=== PATIENT | male | born 1950 | race Caucasian/White ===

== ENCOUNTER 2020-08-02 13:04 | Outpatient (REF) | payer MEDICARE, MEDICAID, OTHER, SELFPAY ==
--- NOTE | ~2020-08-02 | CT_ITS ---
EXAMINATION: CT CHEST WITHOUT CONTRAST CLINICAL INFORMATION: Follow up pulmonary nodules. COMPARISON: Previous chest CT scan June 2019 and chest x-ray August 2019. TECHNIQUE: Multidetector volumetric CT imaging of the chest was done. Axial MIP volume rendering provided. Sagittal and coronal reformatted images were obtained. This CT examination was performed using dose optimization techniques as appropriate, variously including the following: *Automated exposure control *Adjustment of mA and/or kV according to patient size (this includes techniques or standardized protocols for targeted exams where dose is matched to indication/reason for exam; i.e. extremities or head) *Use of iterative reconstruction technique DLP: 105 mGy-cm FINDINGS: LUNGS: There is evidence of mild paraseptal emphysema. There are clustered peribronchial nodules and increased attenuation seen in the medial apical segment of the right upper lobe axial image 113 series 7 that is unchanged. This probably represents airways disease. There is a 2 mm peripheral or subpleural left upper lobe nodule axial image 121 series 7 that is stable. There are several areas of small clustered peribronchial nodules, for example in the anterior segment of the right upper lobe largest measuring 2 mm axial 335 series 7, lateral right lower lobe for example axial image 424 series 7 also likely related to airways disease that are new. There are scattered areas of bronchial wall thickening and soft tissues opacification, for example in the right lower lobe axial image 437 series 7, left upper lobe axial image 224 series 7 and left lower lower lobe axial image 408 series 7. There is a new 4 mm peripheral or subpleural lingular nodule axial image 481 series 7. MEDIASTINUM: There is evidence of atherosclerotic disease. There is severe coronary artery calcification. The heart does not appear enlarged. The thoracic aorta is normal in caliber. There is no pericardial effusion. There is shotty mediastinal lymphadenopathy that is stable. PLEURA: There is no pleural effusion. No pleural mass or thickening. AXILLA: There is bilateral gynecomastia that is stable. No enlarged axillary lymph nodes are seen. UPPER ABDOMEN: There are gallstones in the gallbladder. The spleen is not completely imaged but appears enlarged. There is a radiopaque density adjacent to the greater curvature of the stomach and splenic hilum questionable for postsurgical change or possible embolization material that is stable. OSSEOUS STRUCTURES: There are multiple old left-sided rib fractures. There is scoliosis and degenerative change of the spine. CT/CT chest wo con IMPRESSION: Mild emphysema. Several new clustered peribronchial nodules or tree-in-bud appearance and areas of bronchial wall thickening and bronchial soft tissue opacification suggestive of airways disease. There is a new 4 mm peripheral or subpleural lingular nodule. Chest CT follow-up recommended. Severe coronary artery calcification. Old trauma to the left chest wall. Gallstones. Probable splenomegaly.
== END 2020-08-02 13:05 | disposition home or self-care (01) ==
LOC: HO.CT 13:04
PROVIDERS: Visit Provider Internal Medicine Pulmonary Disease
DX: R91.8 Other nonspecific abnormal finding of lung field (principal)
CPT/HCPCS: 71250

== ENCOUNTER 2020-08-14 11:26 | Emergency (ER) | payer OTHER, MEDICARE, SELFPAY ==
--- NOTE | ~2020-08-14 | XR_ITS ---
EXAMINATION: XR ELBOW, RIGHT CLINICAL INFORMATION: Fall and swelling. COMPARISON: None TECHNIQUE: Four views of the right elbow. FINDINGS: No acute fracture, subluxation or elbow joint effusion. Bones have normal alignment. The elbow is flexed on all views. The elbow joint spaces are maintained. Small, 0.3 cm ossific body projects anterior to the intact radial neck. Also, there is a well-corticated 1.3 cm ossific body of the anterolateral elbow. Soft tissues are swollen posterior to the ulna and olecranon, particularly in the area of the olecranon bursa. This could represent posttraumatic olecranon bursitis. Small foci of calcification are present in the distal triceps tendon near its olecranon insertion. XR/XR elbow RT 2V IMPRESSION: * No acute fracture or malalignment at the right elbow. * Soft tissues are swollen posterior to the ulna and olecranon. There is likely olecranon bursitis. No olecranon fracture.
[2020-08-14 11:45] VITALS: BP 148/77; PULSE 89; RESP 18; TEMP 37.4; O2SAT 94; BMI 18.8
--- NOTE | 2020-08-14 11:57 | ED_ITS ---
HPI - Extremity Problem General Chief complaint: Extremity Injury, Upper Stated complaint: LEG INJ Time Seen by Provider: 08/14/20 11:45 Source: patient Mode of arrival: ambulatory Limitations: no limitations History of Present Illness HPI Narrative: 69 yo male with past medical history of anemia, COPD, HTN, liver disease, bursitis here right elbow pain. Patient tells me he had a slip and fall yesterday landing on his right elbow. Denies hitting head or LOC. This occurred yesterday. Has chronic swelling to elbow d/t bursitis however thiis morning increasing pain, swelling and erythema radiating down the arm. No fevers, chills. MD Complaint: extremity pain and extremity swelling Related Data Home Medications Medication Instructions Recorded Confirmed No Known Home Meds 08/14/20 08/14/20 Previous Rx's Medication Instructions Recorded cefdinir 300 mg PO BID #14 cap 08/14/20 doxycycline monohydrate 100 mg PO BID #14 cap 08/14/20 Allergies Allergy/AdvReac Type Severity Reaction Status Date / Time morphine [MORPHINE] Allergy Intermediate RASH Verified 08/14/20 12:23 Penicillins [PCN] Allergy Intermediate HIVES Verified 08/14/20 12:23 penicillin V Allergy Unknown rash Verified 08/14/20 12:23 Review of Systems Review of Systems: Yes all other systems are reviewed and are negative Constitutional: Constitutional: Reports no additional constitutional complain ts, Denies body ache(s), Denies chills, Denies fever(s), Denies headache(s) and Denies weakness Eyes: Eyes: Reports no additional eye complaints and Denies change in vision ENT: Reports system reviewed and no additional complaints, except as documented, Denies dizziness, Denies headache(s), Denies nasal congestion, Denies nasal discharge and Denies neck pain Cardiovascular: Cardiovascular: Reports no additional cardiovascular complaints, Denies chest pain, Denies leg edema and Denies dyspnea Respiratory: Respiratory: Reports no additional respiratory complaints, Denies cough and Denies dyspnea Gastrointestinal: Gastrointestinal: Reports no additional gastrointestinal complaints, Denies abdominal pain, Denies diarrhea, Denies nausea and Denies v omiting Genitourinary: Genitourinary: Denies urinary incontinence Musculoskeletal: Musculoskeletal: Reports no additional musculoskeletal compla ints, Denies back pain, Reports arthralgias, Reports joint swelling, Reports limited range of motion, Denies neck pain, Denies numbness and Denies tingling Integumentary/Breasts: Skin/Breast: Reports system reviewed and no additional complaints, except as docu and Denies rash Neurologic: Reports system reviewed and no additional complaints, except as documented, Denies Abnormal speech present, Denies dizziness, Denies headache(s), Denies numbness, Denies tingling and Denies weakness PMFSH Past Medical History Attestation statement: The following information was validated with the patient. Source: old records reviewed and nursing notes reviewed Medical History Anemia COPD (chronic obstructive pulmonary disease) Hypertension Liver disease No known health problems Social History Social History Advance Directives: No Advance Directives Information Provided: Yes Physical Exam Vital Signs: Vital Signs: Last Vital Signs Temp 99.3 F 08/14/20 11:45 Pulse 89 08/14/20 11:45 Resp 18 08/14/20 11:45 BP 148/77 H 08/14/20 11:45 Pulse Ox 94 08/14/20 11:45 Body Mass Index 18.8 Const: General: cooperative, healthy appearing, comfortable and no acute distress Orientation/consciousness: patient oriented x3 Limitations: no limitations HENMT: Head: Yes normal to inspection Ears: hearing grossly normal bilaterally General nose exam: Normal external nose present Face and sinus: Yes normal facial exam Mouth: Normal oral and palatal mucosa present Throat: Yes posterior oropharynx normal Eyes: General: appearance normal, both eyes and all related structures Pupils: Equal, round and reactive pupils present Neck: Neck: Yes normal visual inspection Chest: Chest palpation & inspection: normal inspection of the chest Resp: Effort & Inspection: normal respiratory effort Auscultation: clear to auscultation bilaterally Cardio: Rate: regular rate Rhythm: regular rhythm Peripheral pulses: Peripheral pulses 2+ throughout GI: Inspection: Yes normal to inspection Palpation (GI): Soft to palpation and nontender Auscultation: normal bowel sounds Back/Spine/Pelvis: Thoracic/Lumbar Spine: thoracic and lumbar spine normal to inspection Skin: General skin exam: no rashes or lesions noted Neuro: General: patient oriented x3, no focal motor deficits and normal sensation to monofilament Cranial nerves: Yes Equal, round and reactive pupils present Cognition (Neuro): normal cognition Speech: No Abnormal speech present Gait exam (Neuro): Normal gait present Motor exam (neuro): 5/5 motor strength present throughout Extrem: Other: Patient has swelling and tenderness to the lateral aspect of the elbow and has limited extension of the arm d/t pain. Arm held at 90 degrees and able to extend additional 20-30 degrees with significant pain. Palpable distal pulses. No pain over shoulder or wrist. Erythema is NOT circumferential General: Yes normal to inspection Course Course Course Narrative: 69 yo male here with RUE swelling, erythema and limited ROM s/p fall yesterday. On exam patient has erythema and swelling over the olecreanon process with erythema extending over the lateral aspect to the wrist. Significant tenderness and limited ROM d/t pain. Will need imaging, labs including blood cultures/lactic acid. 1350-patient had a CBC which shows no leukocytosis or shift. He has no fever. He does have some thrombocytopenia which appears chronic likely secondary to alcohol use. Patient refused additional labs. I would spoke to Dr. Minaya and reviewed the case. He recommended supportive care, antibiotics PO if concern for cellulitis, and f/u with PCP. Less likely septic joint as patient has some ROM. Spoke to the Dorothy. The patient is up wandering, requiring redirection, refusing care. She tells me this is his normal behavior. All instructions given to her verbally over the phone. She came to pick the patient up. Reviewed worrisome signs and symptoms and when to return to the emergency department. Comfortable discharge home. MDM - Extremity (Nontraumatic) Lab Data Result diagrams: 08/14/20 12:15 08/14/20 12:16 Labs: Lab Results 08/14/20 08/14/20 08/14/20 Range/Units 12:15 12:16 12:16 WBC 10.6 (4.8-10.8) X10*3/uL RBC 4.26 L (4.60-5.80) X10*6/uL Hgb 13.6 L (14.0-18.0) g/dl Hct 42.0 (42-52) % MCV 98.6 H (80-98) fL MCH 31.9 (27.0-33.0) pg MCHC 32.4 (31.0-36.0) g/dl RDW 13.2 (11.0-16.0) % Plt Count 80 L (160-400) X10*3/uL MPV 11.2 (9.4-12.4) fL Immature Gran % (Auto) 0.3 (0.0-0.4) % Neut % (Auto) 76.5 H (45-73) % Lymph % (Auto) 11.1 L (20-40) % [place] % (Auto) 11.5 H (2-11) % Eos % (Auto) 0.4 (0-4) % Baso % (Auto) 0.2 (0-2) % Lymph # (Auto) 1.2 (1.2-4.9) X10*3/uL [place] # (Auto) 1.2 (0.1-1.2) X10*3/uL Eos # (Auto) 0.0 (0.0-0.4) X10*3/uL Baso # (Auto) 0.0 (0.0-0.2) X10*3/uL Abs Immat Gran (auto) 0.03 (0.00-0.03) X10*3/uL Absolute Neuts (auto) 8.1 (2.0-8.3) X10*3/uL Absolute Nucleated RBC 0.000 (0.0-0.012) X10*3/uL Nucleated RBC % (auto) 0.0 (0.0-0.2) /100WBC Smear Tech's Comments VERIFIED Sodium Cancelled Potassium Cancelled Chloride Cancelled Carbon Dioxide Cancelled Anion Gap Cancelled BUN Cancelled Creatinine Cancelled Estim Creat Clear Calc Cancelled Estimated GFR Cancelled Random Glucose Cancelled Lactic Acid 1.4 (0.5-2.0) mmol/L Calcium Cancelled Total Bilirubin Cancelled Direct Bilirubin Cancelled AST Cancelled ALT Cancelled Alkaline Phosphatase Cancelled Total Protein Cancelled Albumin Cancelled Imaging Data elbow x-ray: Attestation: I personally reviewed and interpreted this imaging study as follows: Radiologist's impression: [address] [id number] ReportSigned Patient: Carlos Coto WMR#: [id number]: [id number]:[id number]/Sex: 69 / MADM Date: 08/14/20Loc: HO.EDAttending Dr: Ordering Physician: SARAH CARLISLE NP Date of Service: 08/14/20 Procedure(s): XR elbow RT 2V Accession Number(s): [id number] cc: SARAH CARLISLE NP~ EXAMINATION: XR ELBOW, RIGHT CLINICAL INFORMATION: Fall and swelling. COMPARISON: None TECHNIQUE: Four views of the right elbow. FINDINGS: No acute fracture, subluxation or elbow joint effusion. Bones have normal alignment. The elbow is flexed on all views. The elbow joint spaces are maintained. Small, 0.3 cm ossific body projects anterior to the intact radial neck. Also, there is a well-corticated 1.3 cm ossific body of the anterolateral elbow. Soft tissues are swollen posterior to the ulna and olecranon, particularly in the area of the olecranon bursa. This could represent posttraumatic olecranon bursitis. Small foci of calcification are present in the distal triceps tendon near its olecranon insertion. XR/XR elbow RT 2V IMPRESSION: * No acute fracture or malalignment at the right elbow. * Soft tissues are swollen posterior to the ulna and olecranon. There is likely olecranon bursitis. No olecranon fracture. Discharge Plan Discharge Clinical Impression: Cellulitis Bursitis Qualifiers: Bursitis location: elbow Elbow bursitis location: olecranon bursitis Laterality: right Qualified Code(s): M70.21 - Olecranon bursitis, right elbow Patient Disposition: Home, Self-Care Instructions: Cellulitis (ED), Elbow Bursitis (ED) Additional Instructions: Apply an Yovany wrapped to the elbow to help with the swelling Return for increasing redness, swelling or fever greater than 100.4 He needs to see his doctor by Sunday or Sunday for re-evaluation Prescriptions: New doxycycline monohydrate 100 mg capsule 100 mg PO BID Qty: 14 RF: 0 cefdinir 300 mg capsule 300 mg PO BID Qty: 14 RF: 0 No Action No Known Home Meds RF: 0 Referrals: Willard Carmona MD [Primary Care Provider] - 2 days Interventions: ED Discharge Assessment Last Done: 08/14/20 13:43 Discharge Date/Time: 08/14/20 13:44
[2020-08-14 12:33] LABS: Eosinophils Percent Auto 0.4 % (0-4); MANUAL DIFF FLAG SCAN; Mean Corpuscular Volume 98.6 fL (80-98); Mean Platelet Volume 11.2 fL (9.4-12.4); Monocytes Percent Auto 11.5 % (2-11); PLT CLUMP 1; SCAN SMEAR FLAG 1
[2020-08-14 12:35] LABS: Basophils Percent Auto 0.2 % (0-2); Hemoglobin 13.6 g/dl (14.0-18.0); Imm Gran Abs Auto 0.03 X10*3/uL (0.00-0.03); Imm Gran Pct Auto 0.3 % (0.0-0.4); Lymphocytes Absolute Auto 1.2 X10*3/uL (1.2-4.9); Lymphocytes Percent Auto 11.1 % (20-40); Mean Corpuscular HGB Conc 32.4 g/dl (31.0-36.0); Mean Corpuscular Hemoglobin 31.9 pg (27.0-33.0); Monocytes Absolute Auto 1.2 X10*3/uL (0.1-1.2); Neutrophils Absolute Auto 8.1 X10*3/uL (2.0-8.3); Neutrophils Percent Auto 76.5 % (45-73); Red Blood Count 4.26 X10*6/uL (4.60-5.80); Red Cell Distribution Width 13.2 % (11.0-16.0); White Blood Count 10.6 X10*3/uL (4.8-10.8)
[2020-08-14 12:48] LABS: Lactic Acid 1.4 mmol/L (0.5-2.0)
[2020-08-14 12:50] LABS: Platelet Count 80 X10*3/uL (160-400)
--- NOTE | 2020-08-14 12:55 | PC.NURSE ---
PT REFUSING IV. PT ALSO REFUSING SECOND BLOOD CULTURE DRAW. PT SAYING THATS ALL YOU DO HERE IS STICK PEOPLE AND STEAL THEIR BLOOD.
[2020-08-14 13:17] LABS: SLIDE REVIEW VERIFIED
--- NOTE | 2020-08-14 13:19 | PC.NURSE ---
Addendum entered by Nichol Smith RN 08/14/20 13:21: HALEY WRAP APPLIED TO RIGHT ELBOW/FOREARM. Original Note: HALEY WRAP APPLIED TO LEFT ELBOW/FOREARM. PT AMBULATING AROUND ED, FREQUENTLY BEING REDIRECTED BACK TO [facility]. [facility]EN ON THE WAY TO PICK PATIENT UP.
== END 2020-08-14 13:44 | disposition home or self-care (01) ==
PROVIDERS: Nurse Practitioner Family; Emergency Provider Emergency Medicine; PCP Family Medicine
DX: L03.113 Cellulitis of right upper limb (principal); M70.21 Olecranon bursitis, right elbow; I10 Essential (primary) hypertension
CPT/HCPCS: 36415; 73070; 83605; 85025; 87040; 99283

== ENCOUNTER 2020-08-16 10:21 | Outpatient (REF) | payer OTHER, SELFPAY ==
[2020-08-16 13:48] LABS: MANUAL DIFF FLAG NO
[2020-08-16 13:58] LABS: Basophils Percent Auto 0.2 % (0-2); Eosinophils Absolute Auto 0.1 X10*3/uL (0.0-0.4); Hematocrit 40.1 % (42-52); Hemoglobin 12.9 g/dl (14.0-18.0); Imm Gran Abs Auto 0.03 X10*3/uL (0.00-0.03); Imm Gran Pct Auto 0.3 % (0.0-0.4); Lymphocytes Absolute Auto 0.9 X10*3/uL (1.2-4.9); Lymphocytes Percent Auto 9.3 % (20-40); Mean Corpuscular HGB Conc 32.2 g/dl (31.0-36.0); Mean Corpuscular Hemoglobin 31.4 pg (27.0-33.0); Mean Corpuscular Volume 97.6 fL (80-98); Monocytes Absolute Auto 1.3 X10*3/uL (0.1-1.2); Monocytes Percent Auto 12.9 % (2-11); Neutrophils Absolute Auto 7.5 X10*3/uL (2.0-8.3); Neutrophils Percent Auto 76.3 % (45-73); Platelet Count 100 X10*3/uL (160-400); Red Blood Count 4.11 X10*6/uL (4.60-5.80); White Blood Count 9.9 X10*3/uL (4.8-10.8)
[2020-08-16 14:54] LABS: Alanine Aminotransferase 49 U/L (0-40); Albumin Level 3.4 g/dL (3.5-5.0); Alkaline Phosphatase 82 U/L (39-117); Anion Gap 10 (12-20); Aspartate Amino Transferase 96 U/L (5-37); Bilirubin Total 2.2 mg/dL (0.0-1.0); Blood Urea Nitrogen 13 mg/dL (9-16); Calcium 8.4 mg/dL (8.4-10.2); Carbon Dioxide 28 mmol/L (22-29); Chloride 104 mmol/L (96-108); Estimated Glomerular Filt Rate > 60; Glucose Random 77 mg/dL (60-115); Potassium 3.8 mmol/L (3.3-5.1); Sodium 138 mmol/L (135-145); Total Protein 6.3 g/dL (6.5-8.0)
== END 2020-08-16 10:22 | disposition home or self-care (01) ==
LOC: HO.WFDLDS 10:21
PROVIDERS: Visit Provider Family Medicine
DX: L03.113 Cellulitis of right upper limb (principal)
CPT/HCPCS: 36415; 80053; 85025

== ENCOUNTER 2020-08-16 11:30 | Outpatient (REF) | payer MEDICARE, MEDICAID, OTHER, SELFPAY ==
--- NOTE | ~2020-08-16 | XR_ITS ---
EXAMINATION: RIGHT ELBOW FOREARM AND WRIST X-RAYS CLINICAL INFORMATION: Pain COMPARISON: Previous right elbow x-ray 08/14/2020 TECHNIQUE: 3 views of the right elbow, 2 views of the right forearm and 3 views of the right wrist FINDINGS: Right elbow: Bone alignment is normal. No fracture or dislocation is seen. There are small soft tissue ossifications seen adjacent to the lateral humeral epicondyle and radial head and neck. There are degenerative changes at the radiocapitellar joint. There may be a small elbow joint effusion. There is a soft tissue swelling over the olecranon. There are soft tissue calcifications or ossifications over the olecranon that are stable, some of which may represent calcifications in the triceps tendon. Right forearm: Bone alignment is normal. No fracture or dislocation is seen. Soft tissues are unremarkable. Right wrist: Bone alignment is normal. No fracture or dislocation is seen. There are degenerative changes at the first MCP joint and first JAIL joints with joint space narrowing and osteophyte formation. Joint spaces are otherwise normal. There is a faint soft tissue arterial calcification. XR/XR forearm RT 2V IMPRESSION: Right elbow: No acute fracture or dislocation. Degenerative changes at the radiocapitellar joint, periarticular soft tissue ossifications and small joint effusion. Marked soft tissue swelling over the olecranon similar to previous exam again questionable for olecranon bursitis and question small calcifications or ossifications in the triceps tendon insertion. Right elbow: Unremarkable exam. Right wrist: Degenerative changes at the first MCP and JAIL joints.
--- NOTE | ~2020-08-16 | XR_ITS ---
EXAMINATION: RIGHT ELBOW FOREARM AND WRIST X-RAYS CLINICAL INFORMATION: Pain COMPARISON: Previous right elbow x-ray 08/14/2020 TECHNIQUE: 3 views of the right elbow, 2 views of the right forearm and 3 views of the right wrist FINDINGS: Right elbow: Bone alignment is normal. No fracture or dislocation is seen. There are small soft tissue ossifications seen adjacent to the lateral humeral epicondyle and radial head and neck. There are degenerative changes at the radiocapitellar joint. There may be a small elbow joint effusion. There is a soft tissue swelling over the olecranon. There are soft tissue calcifications or ossifications over the olecranon that are stable, some of which may represent calcifications in the triceps tendon. Right forearm: Bone alignment is normal. No fracture or dislocation is seen. Soft tissues are unremarkable. Right wrist: Bone alignment is normal. No fracture or dislocation is seen. There are degenerative changes at the first MCP joint and first SHELTER joints with joint space narrowing and osteophyte formation. Joint spaces are otherwise normal. There is a faint soft tissue arterial calcification. XR/XR elbow RT min 3V IMPRESSION: Right elbow: No acute fracture or dislocation. Degenerative changes at the radiocapitellar joint, periarticular soft tissue ossifications and small joint effusion. Marked soft tissue swelling over the olecranon similar to previous exam again questionable for olecranon bursitis and question small calcifications or ossifications in the triceps tendon insertion. Right elbow: Unremarkable exam. Right wrist: Degenerative changes at the first MCP and SHELTER joints.
--- NOTE | ~2020-08-16 | XR_ITS ---
EXAMINATION: RIGHT ELBOW FOREARM AND WRIST X-RAYS CLINICAL INFORMATION: Pain COMPARISON: Previous right elbow x-ray 08/14/2020 TECHNIQUE: 3 views of the right elbow, 2 views of the right forearm and 3 views of the right wrist FINDINGS: Right elbow: Bone alignment is normal. No fracture or dislocation is seen. There are small soft tissue ossifications seen adjacent to the lateral humeral epicondyle and radial head and neck. There are degenerative changes at the radiocapitellar joint. There may be a small elbow joint effusion. There is a soft tissue swelling over the olecranon. There are soft tissue calcifications or ossifications over the olecranon that are stable, some of which may represent calcifications in the triceps tendon. Right forearm: Bone alignment is normal. No fracture or dislocation is seen. Soft tissues are unremarkable. Right wrist: Bone alignment is normal. No fracture or dislocation is seen. There are degenerative changes at the first MCP joint and first HALFWAY joints with joint space narrowing and osteophyte formation. Joint spaces are otherwise normal. There is a faint soft tissue arterial calcification. XR/XR wrist RT min 3V IMPRESSION: Right elbow: No acute fracture or dislocation. Degenerative changes at the radiocapitellar joint, periarticular soft tissue ossifications and small joint effusion. Marked soft tissue swelling over the olecranon similar to previous exam again questionable for olecranon bursitis and question small calcifications or ossifications in the triceps tendon insertion. Right elbow: Unremarkable exam. Right wrist: Degenerative changes at the first MCP and HALFWAY joints.
== END 2020-08-16 11:31 | disposition home or self-care (01) ==
LOC: HO.HMGCX 11:30
PROVIDERS: PCP Family Medicine; Visit Provider Family Medicine
DX: M25.531 Pain in right wrist (principal); M25.521 Pain in right elbow
CPT/HCPCS: 73080; 73090; 73110

== ENCOUNTER 2020-08-19 11:20 | Outpatient (REF) | payer MEDICARE, OTHER, SELFPAY | END 2020-08-19 11:21 | disposition home or self-care (01) | LOC: HO.LAB 11:20 | PROVIDERS: Visit Provider Family Medicine | DX: L02.413 Cutaneous abscess of right upper limb (principal) | CPT/HCPCS: 87071; 87205 ==

== ENCOUNTER 2020-08-30 13:30 | Outpatient (RCR) | payer MEDICARE, MEDICAID, SELFPAY | END 2020-12-31 09:56 | disposition home or self-care (01) | LOC: HO.WCC 13:30 | PROVIDERS: Visit Provider Physician Assistant | DX: L98.492 Non-pressure chronic ulcer of skin of other sites with fat layer exposed (principal); M70.21 Olecranon bursitis, right elbow; L08.89 Other specified local infections of the skin and subcutaneous tissue; F17.200 Nicotine dependence, unspecified, uncomplicated; K74.60 Unspecified cirrhosis of liver | CPT/HCPCS: 11042; 17250; 87071; 87077; 87186; 87205; 97605; 99213; 99214; 99215 ==

== ENCOUNTER 2021-03-15 10:02 | Inpatient (IN) | payer MEDICARE, MEDICAID, SELFPAY ==
[2021-03-15] VITALS (8 sets, daily range): BP systolic 118–143; BP diastolic 57–91; PULSE 57–78; RESP 16–18; TEMP 36.3–36.8; O2SAT 92–99; BMI 19.0
--- NOTE | ~2021-03-15 | XR_ITS ---
EXAMINATION: XR CHEST CLINICAL INFORMATION: Shortness of breath COMPARISON: Previous chest x-ray August [address] July 2020 TECHNIQUE: Frontal view of the chest was obtained. FINDINGS: The cardiac and mediastinal contours are stable. The lungs are well inflated. The lungs are clear. There is no pleural effusion or pneumothorax. There are multiple old rib fractures, left greater than right. There are mild degenerative changes of the spine. XR/XR chest 1V IMPRESSION: Well-inflated lungs. No evidence for acute disease in the chest.
--- NOTE | 2021-03-15 10:47 | ECG_ITS ---
Test Reason : DYSPNEA Blood Pressure : / mmHG Vent. 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
--- NOTE | 2021-03-15 10:49 | ED_ITS ---
HPI - SOB/Dyspnea General Chief Complaint: Dyspnea Stated Complaint: SOB Time Seen by Provider: 03/15/21 10:46 Source: patient Mode of arrival: ambulatory Limitations: no limitations History of Present Illness HPI Narrative: 70-year-old male with long history of smoking presented for evaluation of shortness of breath. Found to have 85% O2 sat on room air at triage and patient placed on 3 L of oxygen while ED evaluation. Symptoms started about week ago, feeling something stuck in his mid chest, symptoms are constant since week ago, associated with coughing with yellow sputum, no fever, no chills, no sick contact, absence of flu-like symptoms. Known to have COPD. No recent travel, no lower extremity swelling or tenderness. No chest pain. Patient has been losing weight because loss of appetite not eating well and if he try to eat he vomit due to coughing mixed with phlegm. Related Data Previous Rx's Medication Instructions Recorded albuterol sulfate 90 mcg/actuation 1 inh INHALATION QID PRN 30 Days 11/08/20 aerosol inhaler (ProAir HFA) #8.5 g fluticasone 250 mcg-salmeterol 50 1 inh INHALATION Q12H 30 Days #60 11/08/20 mcg/dose blistr powdr for ea inhalation (Wixela Inhub) Allergies Allergy/AdvReac Type Severity Reaction Status Date / Time morphine [MORPHINE] Allergy Intermediate RASH Verified 01/03/21 10:09 Penicillins [PCN] Allergy Intermediate HIVES Verified 01/03/21 10:09 penicillin V Allergy Unknown rash Verified 01/03/21 10:09 Review of Systems Review of Systems: All other systems are reviewed and are negative Constitutional: Reports as per HPI and Reports no additional constitutional complaints Eyes: Reports as per HPI and Reports no additional eye complaints Reports system reviewed and no additional complaints, except as documented Cardiovascular: Reports as per HPI and Reports no additional cardiovascular complaints Respiratory: Reports as per HPI and Reports no additional respiratory complaints Gastrointestinal: Reports as per HPI and Reports no additional gastrointestinal complaints Genitourinary: Reports no additional female genitourinary complaints Musculoskeletal: Reports no additional musculoskeletal complaints Skin/Breast: Reports system reviewed and no additional complaints, except as docu Psychiatric: Reports no additional psychiatric complaints Endocrine: Reports no additional endocrine complaints Hematologic/Lymphatic: Reports no additional hematologic/lymphatic complaints Allergic/Immunologic: Reports no additional allergic/immunologic complaints Reports system reviewed and no additional complaints, except as documented and Reports Abnormal speech present COUNT INCLUDES THE [facility] Past Medical History Medical History Anemia COPD (chronic obstructive pulmonary disease) Hypertension Liver disease No known health problems Surgical History History of arthroscopic knee surgery History of liver biopsy Family History Family History Father Unknown family medical history Mother Breast cancer Brother No problems noted. Brother No problems noted. Brother No problems noted. Sister No problems noted. Sister No problems noted. Sister No problems noted. Sister Cancer Son No problems noted. Son No problems noted. Son No problems noted. Daughter No problems noted. Social History Social History Housing: House Alcohol intake: never Patient Tobacco Use Status: Current everyday Tobacco user Cigarettes Per Day: 8 Advance Directives: No service: Yes Current occupational status: retired Physical Exam Vital Signs: Vital Signs: Last Vital Signs Temp 98.2 F 03/15/21 15:51 Pulse 68 03/15/21 15:51 Resp 18 03/15/21 15:51 BP 133/58 L 03/15/21 15:51 Pulse Ox 95 03/15/21 15:51 Oxygen Flow Rate 3 03/15/21 10:09 Body Mass Index 19.0 Vital signs have been reviewed as appeared to be correct. Blood pressure normal. Heart rate normal. Respiration rate normal. Temperature normal. Oxygen saturation normal. Appearance: Alert. Oriented X3. No acute distress. Head: Normal external exam. Normocephalic. Atraumatic. No [place] signs noted. No raccoon eyes noted Eyes: PERRLA. EOMI. Conjunctiva and sclera normal. Eyelids normal. ENT: TM's Normal. Pharynx normal. Uvula midline. Moist mucous membranes. No trismus noted. No drooling noted. No muffled voice noted. Neck: Normal inspection. Neck supple. FROM. No adenopathy. Thyroid Normal. No meningeal signs. No neck mass noted. CVS: Normal heart rate and rhythm. Heart sound normal. No murmurs noted. Pulses normal throughout. Respiratory: No respiratory distress. Painless inspiration. Breath sounds normal. Diffuse expiratory wheezing, prolonged expiration. nontender. No accessory muscle usage noted or decreased air movement noted. Abdomen: Soft and nontender. Bowel sounds normal in all 4 quadrants. No d istention noted. No organomegaly noted. No visible injury noted. Back: No CVA tenderness. Full range of motion noted. Skin: Skin warm and dry. Normal skin color. Normal skin turgor. No rashes/l esions/lacerations noted. Extremities: No lower extremity edema. Extremities exhibit normal range of motion. Extremities nontender. Neuro: Oriented X 3. Cranial nerve exam: II-XII are grossly intact No motor deficit. No sensory deficit. Reflexes normal. Course Course Course Narrative: Assessment and plan. 70-year-old male history of COPD, long history of smoking presented with shortness of breath and increased wheezing for the past week. Patient initially satting 85% on room air, patient was placed on 3 L of supplemental oxygen which improved his oxygenation, patient also received bron chodilator/magnesium/Solu-Medrol patient's symptoms have improved. Patient also looking cachectic with a complaint of losing weight, patient had a history of food is stuck in his esophagus (was managed by GI at [facility]), discussed with the hospitalist and get inpatient GI consult. I discussed the case with Dr. Price from GI who will assess the patient MDM - SOB/Dyspnea Lab Data Attestation: I reviewed the patient's lab results. Result diagrams: 03/15/21 13:23 03/15/21 11:54 Labs: Lab Results 03/15/21 03/15/21 03/15/21 Range/Units 11:54 11:54 13:23 WBC 7.0 (4.8-10.8) X10*3/uL RBC 3.58 L (4.60-5.80) X10*6/uL Hgb 9.6 L D (14.0-18.0) g/dl Hct 32.7 L (42-52) % MCV 91.3 (80-98) fL MCH 26.8 L (27.0-33.0) pg MCHC 29.4 L (31.0-36.0) g/dl RDW 15.8 (11.0-16.0) % Plt Count 118 L (160-400) X10*3/uL MPV 10.4 (9.4-12.4) fL Immature Gran % (Auto) 0.3 (0.0-0.4) % Neut % (Auto) 71.0 (45-73) % Lymph % (Auto) 20.9 (20-40) % [place] % (Auto) 7.6 (2-11) % Eos % (Auto) 0.1 (0-4) % Baso % (Auto) 0.1 (0-2) % Lymph # (Auto) 1.5 (1.2-4.9) X10*3/uL [place] # (Auto) 0.5 (0.1-1.2) X10*3/uL Eos # (Auto) 0.0 (0.0-0.4) X10*3/uL Baso # (Auto) 0.0 (0.0-0.2) X10*3/uL Abs Immat Gran (auto) 0.02 (0.00-0.03) X10*3/uL Absolute Neuts (auto) 5.0 (2.0-8.3) X10*3/uL Absolute Nucleated RBC 0.000 (0.0-0.012) X10*3/uL Nucleated RBC % (auto) 0.0 (0.0-0.2) /100WBC Sodium 144 (135-145) mmol/L Potassium 3.8 (3.3-5.1) mmol/L Chloride 106 (96-108) mmol/L Carbon Dioxide 35 H (22-29) mmol/L Anion Gap 7 L (12-20) BUN 25 H D (9-16) mg/dL Creatinine 0.67 (0.5-1.4) mg/dL Estim Creat Clear Calc 94.7 Estimated GFR > 60 Random Glucose 97 (60-115) mg/dL Calcium 8.7 (8.4-10.2) mg/dL Total Bilirubin 1.1 H (0.0-1.0) mg/dL Direct Bilirubin 0.8 H (0.0-0.5) mg/dL AST 91 H (5-37) U/L ALT 50 H (0-40) U/L Alkaline Phosphatase 75 (39-117) U/L Troponin I High Sens (<3.5-35.0) ng/L B-Natriuretic Peptide (<100) pg/mL Total Protein 5.6 L (6.5-8.0) g/dL Albumin 2.8 L (3.5-5.0) g/dL Lipase 24 (8-78) U/L COVID-19 (TREVOR) Negative (Negative) COVID-19 Clin Com See Note 03/15/21 03/15/21 Range/Units 13:23 13:23 WBC (4.8-10.8) X10*3/uL RBC (4.60-5.80) X10*6/uL Hgb (14.0-18.0) g/dl Hct (42-52) % MCV (80-98) fL MCH (27.0-33.0) pg MCHC (31.0-36.0) g/dl RDW (11.0-16.0) % Plt Count (160-400) X10*3/uL MPV (9.4-12.4) fL Immature Gran % (Auto) (0.0-0.4) % Neut % (Auto) (45-73) % Lymph % (Auto) (20-40) % [place] % (Auto) (2-11) % Eos % (Auto) (0-4) % Baso % (Auto) (0-2) % Lymph # (Auto) (1.2-4.9) X10*3/uL [place] # (Auto) (0.1-1.2) X10*3/uL Eos # (Auto) (0.0-0.4) X10*3/uL Baso # (Auto) (0.0-0.2) X10*3/uL Abs Immat Gran (auto) (0.00-0.03) X10*3/uL Absolute Neuts (auto) (2.0-8.3) X10*3/uL Absolute Nucleated RBC (0.0-0.012) X10*3/uL Nucleated RBC % (auto) (0.0-0.2) /100WBC Sodium (135-145) mmol/L Potassium (3.3-5.1) mmol/L Chloride (96-108) mmol/L Carbon Dioxide (22-29) mmol/L Anion Gap (12-20) BUN (9-16) mg/dL Creatinine (0.5-1.4) mg/dL Estim Creat Clear Calc Estimated GFR Random Glucose (60-115) mg/dL Calcium (8.4-10.2) mg/dL Total Bilirubin (0.0-1.0) mg/dL Direct Bilirubin (0.0-0.5) mg/dL AST (5-37) U/L ALT (0-40) U/L Alkaline Phosphatase (39-117) U/L Troponin I High Sens 4.0 (<3.5-35.0) ng/L B-Natriuretic Peptide 129 H (<100) pg/mL Total Protein (6.5-8.0) g/dL Albumin (3.5-5.0) g/dL Lipase (8-78) U/L COVID-19 (TREVOR) (Negative) COVID-19 Clin Com Imaging Data Chest x-ray: Radiologist's impression: Well-inflated lungs. No evidence for acute disease in the chest. ? Discharge Plan Discharge Patient Disposition: Admitted As Inpatient
--- NOTE | 2021-03-15 12:06 | PC.NURSE ---
pt alert and oriented, vss. pt c/o sob for about one week to 10 days. he also c/o nausea, no vomiting/diarrhea. c/o dizziness, no headache. no c/o abdominal pain. pt also c/o productive cough-with greenish sputum. pt states he has not been eating because he thinks he will throw up. Pt currently satting at 88-89% r/a, pt placed on 1L n/c and O2 sat reading 97%. respiratory therapist at the bedside. pt is a hard stick, will reattempt iv insertion after tx.
[2021-03-15 12:17] LABS: COVID-19 Test Negative (Negative); IDNOW Serial# 9DD0AD1C
[2021-03-15] MEDS: Albuterol/Iprat 2.5/0.5MG 3 ML AMPUL.NEB INHALE ×2 (12:19→22:01)
[2021-03-15] MEDS: Albuterol Sulfate (0.083%) 2.5 MG/3 ML VIAL.NEB 5 MG INHALE (12:19)
[2021-03-15 12:21] LABS: Alanine Aminotransferase 50 U/L (0-40); Albumin Level 2.8 g/dL (3.5-5.0); Alkaline Phosphatase 75 U/L (39-117); Anion Gap 7 (12-20); Aspartate Amino Transferase 91 U/L (5-37); Bilirubin Direct 0.8 mg/dL (0.0-0.5); Bilirubin Total 1.1 mg/dL (0.0-1.0); Blood Urea Nitrogen 25 mg/dL (9-16); Calcium 8.7 mg/dL (8.4-10.2); Carbon Dioxide 35 mmol/L (22-29); Chloride 106 mmol/L (96-108); Creatinine Clr Calc Pharmacy 94.7; Estimated Glomerular Filt Rate > 60; Glucose Random 97 mg/dL (60-115); Lipase 24 U/L (8-78); Potassium 3.8 mmol/L (3.3-5.1); Sodium 144 mmol/L (135-145); Total Protein 5.6 g/dL (6.5-8.0)
[2021-03-15] MEDS: methylPREDNISolone Sod Succ 125 MG/2 ML VIAL IVPUSH (13:03)
[2021-03-15] MEDS: Magnesium Sulfate/H2O 2 GM/50 ML PIGGYBACK IV (13:04)
[2021-03-15 13:30] LABS: MANUAL DIFF FLAG NO
[2021-03-15 13:37] LABS: Basophils Percent Auto 0.1 % (0-2); Eosinophils Percent Auto 0.1 % (0-4); Hematocrit 32.7 % (42-52); Hemoglobin 9.6 g/dl (14.0-18.0); Imm Gran Abs Auto 0.02 X10*3/uL (0.00-0.03); Imm Gran Pct Auto 0.3 % (0.0-0.4); Lymphocytes Absolute Auto 1.5 X10*3/uL (1.2-4.9); Lymphocytes Percent Auto 20.9 % (20-40); Mean Corpuscular HGB Conc 29.4 g/dl (31.0-36.0); Mean Corpuscular Hemoglobin 26.8 pg (27.0-33.0); Mean Corpuscular Volume 91.3 fL (80-98); Mean Platelet Volume 10.4 fL (9.4-12.4); Monocytes Absolute Auto 0.5 X10*3/uL (0.1-1.2); Monocytes Percent Auto 7.6 % (2-11); Platelet Count 118 X10*3/uL (160-400); Red Blood Count 3.58 X10*6/uL (4.60-5.80); Red Cell Distribution Width 15.8 % (11.0-16.0)
[2021-03-15 13:50] LABS: B Type Natriuretic Peptide 129 pg/mL (<100)
--- NOTE | 2021-03-15 16:50 | PM.IMHP ---
History of Present Illness Date of Service: 03/15/21 Chief Complaint: sob ,cough , nausea 70-year-old male with history of COPD, smoker-at least 20 pack year history, still smoking 2 cigarettes a day: Patient came to the hospital because shortness of breath, cough and phlegm 2-3 days duration-which was progressively getting worse, so decided to come to the hospital. In addition patient says he has nausea and having difficulty to keep the food down due to that. He also complains of weight loss but does not know how much she lost. Appears thin. He said nausea and difficult to give food from last 2-3 weeks. He had meat stuck in his esophagus 5-6 months ago and that time was removed by egd with GI in [facility] Dr. guy. Patient has sputum production yellow color This patient is seen and examined - Denies any chest pain or abdominal pain or fever or chills or weakness or numbness or rash or diarrhea or abdominal pain. Denies any muscle pains or any blurry vision. Lab imaging reviewed and personally interpreted. Patient has mild pre renal azotemia, was desatting in the ED in 80s as per ED physician and subsequently was given nebs and oxygen and steroids and seems improving. mild anemia normocytic , thrombocytopenia Chest x-ray negative for pneumonia Review of Systems Review of Systems: Please see HPI section. Yes all other systems are reviewed and are negative [facility] Medical History Anemia COPD (chronic obstructive pulmonary disease) Hypertension Liver disease No known health problems Family History Father Unknown family medical history Mother Breast cancer Brother No problems noted. Brother No problems noted. Brother No problems noted. Sister No problems noted. Sister No problems noted. Sister No problems noted. Sister Cancer Son No problems noted. Son No problems noted. Son No problems noted. Daughter No problems noted. Pertinent family history: family hx of cancer -mother( brain metastasis)and his aunts also had cancer does not know which body parts Surgical History History of arthroscopic knee surgery History of liver biopsy Social History Housing: House Alcohol intake: never Patient Tobacco Use Status: Current everyday Tobacco user Tobacco use type: Cigarette Cigarettes Per Day: 3 Years Smoked: 30 Smoked in Last 30 Days: Yes Patient Interested in Nicotine Replacement: Yes Patient Given Instructions on How to Stop Smoking: No Second Hand Smoke Exposure: No Advance Directives: No Advance Directives Information Provided: No (declined) service: Yes Current occupational status: retired Meds Allergies Allergy/AdvReac Type Severity Reaction Status Date / Time morphine [MORPHINE] Allergy Intermediate RASH Verified 01/03/21 10:09 Penicillins [PCN] Allergy Intermediate HIVES Verified 01/03/21 10:09 penicillin V Allergy Unknown rash Verified 01/03/21 10:09 Active Medications: Current Medications Albuterol/Ipratropium (Albuterol/Iprat 2.5/0.5mg 3 Ml Ampul.Neb) 3 ml INHALE Q6H PRN PRN Reason: sob Albuterol/Ipratropium (Albuterol/Iprat 2.5/0.5mg 3 Ml Ampul.Neb) 3 ml INHALE RQ4H WHILE AWAKE [place] Enoxaparin Sodium (Enoxaparin Sodium 40 Mg/0.4 Ml Syringe) 40 mg SUBCUT Q24H [place] Methylprednisolone Sodium Succinate (Methylprednisolone Sod Succ 40 Mg/Ml Vial) 40 mg IVPUSH Q12H [place] Ondansetron HCl (Ondansetron Hcl 4 Mg/2 Ml Vial) 4 mg IVPUSH Q6H PRN PRN Reason: Nausea Pantoprazole Sodium (Pantoprazole Sodium 40 Mg/10 Ml Vial) 40 mg IVPUSH DAILY@0630 [facility] Sodium Chloride (0.9 % Sodium Chloride Flush 3 Ml Syringe) 3 ml IVFLUSH QSHIFT [place] Physical Exam Vital Signs and Narrative: Vital Signs: Last Vital Signs Temp 98.2 F 03/15/21 15:51 Pulse 68 03/15/21 15:51 Resp 18 03/15/21 15:51 BP 133/58 L 03/15/21 15:51 Pulse Ox 95 03/15/21 15:51 Oxygen Flow Rate 3 03/15/21 10:09 Body Mass Index 19.0 Physical exam: Appearance: Alert.? Oriented X3.? not in distress, ch ill appearing male , speaking well? Eyes: Pupils equal, round and reactive to light.? Sclera nonicteric.? ENT: Pharynx normal.? Moist mucous membranes. cvs: rrr, [id number] , no murmur res: has dimished beath sounds , b/l wheezing abd: no rebound or guarding ,nt, bs present. ext pulses present , no cyanosis ,Gait well balanced well coordinated. neuro: axo3 , nonfocal. Results Labs CBC and Chem 7: 03/15/21 13:23 03/15/21 11:54 Labs: Laboratory Results - last 24 hr 03/15/21 03/15/21 03/15/21 11:54 11:54 13:23 MCV 91.3 MCH 26.8 L MCHC 29.4 L RDW 15.8 Plt Count 118 L MPV 10.4 Immature Gran % (Auto) 0.3 Neut % (Auto) 71.0 Lymph % (Auto) 20.9 [place] % (Auto) 7.6 Eos % (Auto) 0.1 Baso % (Auto) 0.1 Lymph # (Auto) 1.5 [place] # (Auto) 0.5 Eos # (Auto) 0.0 Baso # (Auto) 0.0 Abs Immat Gran (auto) 0.02 Absolute Neuts (auto) 5.0 Absolute Nucleated RBC 0.000 Nucleated RBC % (auto) 0.0 Anion Gap 7 L Estim Creat Clear Calc 94.7 Estimated GFR > 60 Random Glucose 97 Calcium 8.7 Total Bilirubin 1.1 H Direct Bilirubin 0.8 H AST 91 H ALT 50 H Alkaline Phosphatase 75 Troponin I High Sens B-Natriuretic Peptide Total Protein 5.6 L Albumin 2.8 L Lipase 24 COVID-19 (TREVOR) Negative COVID-19 Clin Com See Note 03/15/21 03/15/21 13:23 13:23 MCV MCH MCHC RDW Plt Count MPV Immature Gran % (Auto) Neut % (Auto) Lymph % (Auto) [place] % (Auto) Eos % (Auto) Baso % (Auto) Lymph # (Auto) [place] # (Auto) Eos # (Auto) Baso # (Auto) Abs Immat Gran (auto) Absolute Neuts (auto) Absolute Nucleated RBC Nucleated RBC % (auto) Anion Gap Estim Creat Clear Calc Estimated GFR Random Glucose Calcium Total Bilirubin Direct Bilirubin AST ALT Alkaline Phosphatase Troponin I High Sens 4.0 B-Natriuretic Peptide 129 H Total Protein Albumin Lipase COVID-19 (TREVOR) COVID-19 Clin Com Imaging Radiologist's Impressions: Impressions Chest X-Ray 03/15/21 10:46 IMPRESSION: Well-inflated lungs. No evidence for acute disease in the chest. Assessment and Plan (1) COPD (chronic obstructive pulmonary disease): Status: Acute (2) Smoking: Status: Acute (3) Anemia: Status: Acute (4) Weight loss: Status: Acute (5) Dyspepsia: Status: Acute 1. COPD exacerbation: Started nebs steroids, azithromycin, p.r.n. oxygen as needed 2.nausea /? dyspepsia: Gi saw the patient -given history of food stuck requiring EGD, weight loss: May need EGD iv LR -gentle hydration while npo 3. Normocytic anemia: Denies any bleeding grossly or melena H&H range from 9 to 12 range in 2-3year or so Will check B12 and folate. GI following 4. opoid use hx: patient says he is on methadone? med reconcillation pending- pharmacy aware. dvt prophylax s/c lovenox since has mild thrombocytopenia Above management discussed with the patient in detail length he understand and in agreement with the above plan including code status , time spent 70 minutes and 50% time spent on counseling. patient is full code Quality Stroke Does the patient have a stroke diagnosis?: No VTE Prior VTE?: No VTE Risk Level:: Medical - moderate - high VTE Device Contraindication: N/A - Device Ordered VTE Drug Contraindication: N/A - Med Ordered
[2021-03-15] MEDS: Pantoprazole Sodium 40 MG/10 ML VIAL IVPUSH (17:56)
[2021-03-15] MEDS: Azithromycin 500 MG in 0.9 % Sodium Chloride 250 ML 125 MG IV (17:57)
[2021-03-15 19:22] LABS: Folate 8.3 ng/mL (> or = 4.0); Vitamin B12 908 pg/mL (200-900)
[2021-03-15 19:32] LABS: Appearance Urine HAZY; Color Urine DK YELLOW; Glucose Urine UA NEG (NEG); Leukocyte Esterase Urine NEG (NEG); Nitrite Urine NEG (NEG); Specific Gravity - Urine >= 1.030 (1.005-1.025); UACC Culture Trigger NO; Urine Blood 3+ (NEG); Urine Ketones NEG (NEG); Urine Protein NEG (NEG-TRACE)
[2021-03-15 19:40] LABS: Calcium Oxalate Crystals Urine 3+ /LPF
[2021-03-15 19:43] LABS: Bacteria Urine TRACE /LPF; Mucus Urine 2+ /LPF; Squamous Epithelial Cell Urine 2+ /LPF; WBC Urine 0 /HPF (0-4)
[2021-03-15] MEDS: Enoxaparin Sodium 40 MG/0.4 ML SYRINGE SUBCUT (22:02)
[2021-03-15] MEDS: Lactated Ringers 1,000 ML 80 ML IVCONT (22:03)
[2021-03-15] MEDS: methylPREDNISolone Sod Succ 40 MG/ML VIAL IVPUSH (22:03)
--- NOTE | 2021-03-15 23:03 | PM.GICN ---
History of Present Illness Data of Consult Service Date: 03/15/21 Requesting physician: Kendra Charles Primary Care Provider: Unknown Physician HPI Reason for consult: dysphagia 70-year-old male with history of COPD, who I am seeing for assessment of dysphagia. Patient came to ED with initial c/o sputum and SOB. He denies chest pain but does admit to difficulty swallowing for last 3 weeks and apparently had EGD at [facility] with food disimpaction just before this. He has also noted poor appetite and weight loss over several weeks. Denies fever, chills, hemoptysis, or abdominal pain. He denies melena, rectal bleeding, diarrhea or constipation. He is able to swallow fluids but has difficulty managing solids effectively. \ labs with chronically worening anemia with HGB around 10 g/dl, new abn LFT and low albumin. CXR personally reviewed with hyperexpanded chest, no lesions note,d prominent pulm vessels. Review of Systems Review of Systems: Constitutional : + Weight loss, No Fever, No Chills ENT/Mouth : No sore throat, No Rhinorrhea Eyes: No Swelling, No Redness Cardiovascular : No Chest Pain, + SOB, No Edema Respiratory : see HPI Gastrointestinal : see HPI Genitourinary : NO Dysuria, No Urinary Frequency, No Hematuria, No Urgency Musculoskeletal : No joint pain, No Myalgias, No Joint Swelling Skin : No Skin Lesions, No rash Neuro : + Weakness, No Numbness, No Dizziness, No Headache Psych : No Anxiety/Panic, No Depression Heme/Lymph: No Bruising, No Lymphadenopathy Endocrine : No Polyuria, No Polydipsia All other systems reviewed and are negative. Yes all other systems are reviewed and are negative [facility] Past Medical History Medical History Anemia COPD (chronic obstructive pulmonary disease) Hypertension Liver disease No known health problems Family History Family History Father Unknown family medical history Mother Breast cancer Brother No problems noted. Brother No problems noted. Brother No problems noted. Sister No problems noted. Sister No problems noted. Sister No problems noted. Sister Cancer Son No problems noted. Son No problems noted. Son No problems noted. Daughter No problems noted. Pertinent family history: family hx of cancer -mother( brain metastasis)and his aunts also had cancer does not know which body parts Surgical History Surgical History History of arthroscopic knee surgery History of liver biopsy Social History Social History Housing: House Alcohol intake: never Patient Tobacco Use Status: Current everyday Tobacco user Tobacco use type: Cigarette Cigarettes Per Day: 3 Years Smoked: 30 Smoked in Last 30 Days: Yes Patient Interested in Nicotine Replacement: Yes Patient Given Instructions on How to Stop Smoking: No Second Hand Smoke Exposure: No Advance Directives: No Advance Directives Information Provided: No (declined) service: Yes Current occupational status: retired Meds Allergies Allergy/AdvReac Type Severity Reaction Status Date / Time morphine [MORPHINE] Allergy Intermediate RASH Verified 01/03/21 10:09 Penicillins [PCN] Allergy Intermediate HIVES Verified 01/03/21 10:09 penicillin V Allergy Unknown rash Verified 01/03/21 10:09 Active Medications: Current Medications Albuterol/Ipratropium (Albuterol/Iprat 2.5/0.5mg 3 Ml Ampul.Neb) 3 ml INHALE Q6H PRN PRN Reason: sob Albuterol/Ipratropium (Albuterol/Iprat 2.5/0.5mg 3 Ml Ampul.Neb) 3 ml INHALE RQ4H WHILE AWAKE [facility] Last Admin: 03/15/21 22:01 Dose: 3 ml Documented by: Enoxaparin Sodium (Enoxaparin Sodium 40 Mg/0.4 Ml Syringe) 40 mg SUBCUT Q24H [facility] Last Admin: 03/15/21 22:02 Dose: 40 mg Documented by: Azithromycin 500 mg/ Sodium (Chloride) 250 mls @ 125 mls/hr IV Q24H [facility] Last Infusion: 03/15/21 20:05 Dose: Infused Documented by: Lactated Ringer's (Lr) 1,000 mls @ 80 mls/hr IVCONT .[id number] [facility] Last Admin: 03/15/21 22:03 Dose: 80 mls/hr Documented by: Methylprednisolone Sodium Succinate (Methylprednisolone Sod Succ 40 Mg/Ml Vial) 40 mg IVPUSH Q12H [facility] Last Admin: 03/15/21 22:03 Dose: 40 mg Documented by: Ondansetron HCl (Ondansetron Hcl 4 Mg/2 Ml Vial) 4 mg IVPUSH Q8H PRN PRN Reason: Nausea Pantoprazole Sodium (Pantoprazole Sodium 40 Mg/10 Ml Vial) 40 mg IVPUSH DAILY@0630 [facility] Last Admin: 03/15/21 17:56 Dose: 40 mg Documented by: Sodium Chloride (0.9 % Sodium Chloride Flush 3 Ml Syringe) 3 ml IVFLUSH QSHIFT [facility] Home Medications Medication Instructions Recorded Confirmed Last Taken Type methadone 10 mg/mL oral 35 mg PO DAILY 03/15/21 Unknown History concentrate (Methadone Intensol) Physical Exam Vital Signs: Vital Signs: Last Vital Signs Temp 98.1 F 03/15/21 19:29 Pulse 63 03/15/21 22:02 Resp 18 03/15/21 19:29 BP 143/91 H 03/15/21 19:29 Pulse Ox 95 03/15/21 19:29 Oxygen Flow Rate 3 03/15/21 10:09 Body Mass Index 19.0 EXAM: GENERAL: The patient is gaunt and thin, coughing up sputum VITAL SIGNS:see workflow HEENT: Nonicteric sclerae, PERRLA, EOMI. Oropharynx clear. Moist mucous membranes. Conjunctivae with pallor. No thyroid mass. CHEST: Chest wall is nontender, hyperextended chest wall HEART: Regular rate and rhythm without murmurs. LUNGS: poor a/e with reduced BS B/L ABDOMEN: Soft, positive bowel sounds, nontender, no organomegaly.no flank tenderness SKIN: No rash, no excessive bruising, petechiae, or purpura. NEUROLOGIC: Cranial nerves II-XII intact without motor/sensory deficit. MS- nml Psych--nml affect Extrem: General: Yes normal to inspection Results Labs CBC & Chem 7: 03/15/21 13:23 03/15/21 11:54 Labs: Short CBC 03/15/21 Range/Units 13:23 WBC 7.0 (4.8-10.8) X10*3/uL Hgb 9.6 L D (14.0-18.0) g/dl Hct 32.7 L (42-52) % Plt Count 118 L (160-400) X10*3/uL [facility] 03/15/21 11:54 Sodium 144 Potassium 3.8 Chloride 106 Carbon Dioxide 35 H BUN 25 H D Creatinine 0.67 Calcium 8.7 Liver Function 03/15/21 Range/Units 11:54 Total Bilirubin 1.1 H (0.0-1.0) mg/dL Direct Bilirubin 0.8 H (0.0-0.5) mg/dL AST 91 H (5-37) U/L ALT 50 H (0-40) U/L Alkaline Phosphatase 75 (39-117) U/L Albumin 2.8 L (3.5-5.0) g/dL Urine 03/15/21 Range/Units 19:25 Urine Color DK YELLOW Urine Appearance HAZY Urine pH 6.0 (5.0-8.0) Ur Specific [place] >= 1.030 H (1.005-1.025) Urine Protein NEG (NEG-TRACE) MG/DL Urine Glucose (UA) NEG (NEG) MG/DL Assessment and Plan (1) COPD (chronic obstructive pulmonary disease): Status: Acute (2) Smoking: Status: Acute (3) Anemia: Status: Acute (4) Weight loss: Status: Acute (5) Dyspepsia: Status: Acute 1/ Worsening dysphagia with anemia concern for ulcerated esophageal stricture either malignant or benign judie given smoking hx and weight loss, ddx --achalasia, dysmotility, peptic ulcer disease 2/ Abn LFT< may be due to alcohol use, or maybe due to liver mets or hepatic congestion PLAN: 1/ get old notes from [facility] 2/ allow fluids and soft diet as tolerated 3/ EGD tomorrow, prob [place] 4/ treat for COPD exacerbation as doing. 5/ can add PPI and carafate meantime 6/ CT chest and abdomen judie with abn LFT r/o mets 7/ check hep serologies, check ferritin, A1AT judie with hx of COPD, YURIDIA< SMA< SLA, IgG level, celiac panel Procedures Date of Service Date of Service: 03/15/21
[2021-03-16] VITALS (10 sets, daily range): BP systolic 109–129; BP diastolic 52–72; PULSE 60–84; RESP 16–19; TEMP 36.1–37.2; O2SAT 93–99; BMI 19.0
[2021-03-16] MEDS: Pantoprazole Sodium 40 MG/10 ML VIAL IVPUSH (06:06)
[2021-03-16 06:36] LABS: Hemoglobin 8.3 g/dl (14.0-18.0); Mean Corpuscular HGB Conc 29.6 g/dl (31.0-36.0); Mean Corpuscular Hemoglobin 26.9 pg (27.0-33.0); Mean Corpuscular Volume 90.9 fL (80-98); Mean Platelet Volume 11.1 fL (9.4-12.4); Red Blood Count 3.08 X10*6/uL (4.60-5.80); Red Cell Distribution Width 15.9 % (11.0-16.0); White Blood Count 4.7 X10*3/uL (4.8-10.8)
[2021-03-16 06:49] LABS: Anion Gap 9 (12-20); Blood Urea Nitrogen 19 mg/dL (9-16); Calcium 8.4 mg/dL (8.4-10.2); Carbon Dioxide 30 mmol/L (22-29); Chloride 108 mmol/L (96-108); Creatinine Clr Calc Pharmacy 100.7; Estimated Glomerular Filt Rate > 60; Glucose Random 177 mg/dL (60-115); Potassium 3.8 mmol/L (3.3-5.1); Sodium 143 mmol/L (135-145)
[2021-03-16 06:58] LABS: Platelet Count 92 X10*3/uL (160-400)
[2021-03-16] MEDS: Albuterol/Iprat 2.5/0.5MG 3 ML AMPUL.NEB INHALE ×2 (08:00→11:45)
--- NOTE | 2021-03-16 08:30 | PHA.MEDREC ---
Pharmacy Consult ? Medication Reconciliation Pharmacy has completed the medication reconciliation. Patient gets methadone from [facility], . Dose verified 35mg last given 03/15/21 @ 0926. Isha Ochoa, NamrataD
--- NOTE | 2021-03-16 08:54 | MHC.CM.PN ---
pt lives c his and daughter in his home. he reports that he is independent in his care. he uses no AD c ambulation and has no svcs at home. he drives a car and is retired. pt will have his provide transportation at md. pt denies the need for vna at dc. dc plan is home no svcs. cm to cont. to follow.
[2021-03-16] MEDS: methADONE HCl 20 MG/2 ML ORAL.CONC 35 MG PO (10:39)
--- NOTE | 2021-03-16 13:55 | P.CONAN_ITS ---
[facility] Active Problems Active Problems: All Active Problems (Updated 03/15/21 @ 18:31 by Kendra graham MD) Dyspepsia (Acute) Weight loss (Acute) Anemia (Acute) Smoking (Acute) COPD (chronic obstructive pulmonary disease) (Acute) Abscess of right elbow (Acute) Pain in right elbow (Acute) Pain in right wrist (Acute) Cellulitis of right arm (Acute) Fall (on) (from) other stairs and steps, initial encounter (Acute) Past Medical History Medical History Anemia COPD (chronic obstructive pulmonary disease) Hypertension Liver disease No known health problems Family History Family History Father Unknown family medical history Mother Breast cancer Brother No problems noted. Brother No problems noted. Brother No problems noted. Sister No problems noted. Sister No problems noted. Sister No problems noted. Sister Cancer Son No problems noted. Son No problems noted. Son No problems noted. Daughter No problems noted. Surgical History Surgical History History of arthroscopic knee surgery History of liver biopsy History of Problems with Anesthesia: No Social History Social History Housing: House Alcohol intake: never Patient Tobacco Use Status: Current everyday Tobacco user Tobacco use type: Cigarette Cigarettes Per Day: 3 Years Smoked: 30 Smoked in Last 30 Days: Yes Patient Interested in Nicotine Replacement: Yes Patient Given Instructions on How to Stop Smoking: No Second Hand Smoke Exposure: No Use of substances other than those prescribed or required for medical reasons: Yes Substance Use Frequency: Daily Are you DNR?: No Advance Directives: No Advance Directives Information Provided: No (declined) service: No Current occupational status: retired Meds Allergies Allergy/AdvReac Type Severity Reaction Status Date / Time morphine [MORPHINE] Allergy Intermediate RASH Verified 01/03/21 10:09 Penicillins [PCN] Allergy Intermediate HIVES Verified 01/03/21 10:09 penicillin V Allergy Unknown rash Verified 01/03/21 10:09 Active Medications: Current Medications Albuterol/Ipratropium (Albuterol/Iprat 2.5/0.5mg 3 Ml Ampul.Neb) 3 ml INHALE Q6H PRN PRN Reason: sob Albuterol/Ipratropium (Albuterol/Iprat 2.5/0.5mg 3 Ml Ampul.Neb) 3 ml INHALE RQ4H WHILE AWAKE [facility] Last Admin: 03/16/21 11:45 Dose: 3 ml Documented by: Enoxaparin Sodium (Enoxaparin Sodium 40 Mg/0.4 Ml Syringe) 40 mg SUBCUT Q24H [facility] Last Admin: 03/15/21 22:02 Dose: 40 mg Documented by: Azithromycin 500 mg/ Sodium (Chloride) 250 mls @ 125 mls/hr IV Q24H [facility] Last Infusion: 03/15/21 20:05 Dose: Infused Documented by: Methadone HCl (Methadone Hcl 20 Mg/2 Ml Oral.Conc) 35 mg PO DAILY [facility] Last Admin: 03/16/21 10:39 Dose: 35 mg Documented by: Methylprednisolone Sodium Succinate (Methylprednisolone Sod Succ 40 Mg/Ml Vial) 40 mg IVPUSH Q12H [facility] Last Admin: 03/16/21 09:11 Dose: Not Given Documented by: Ondansetron HCl (Ondansetron Hcl 4 Mg/2 Ml Vial) 4 mg IVPUSH Q8H PRN PRN Reason: Nausea Pantoprazole Sodium (Pantoprazole Sodium 40 Mg/10 Ml Vial) 40 mg IVPUSH DAILY@0630 [facility] Last Admin: 03/16/21 06:06 Dose: 40 mg Documented by: Sodium Chloride (0.9 % Sodium Chloride Flush 3 Ml Syringe) 3 ml IVFLUSH QSHIFT [facility] Last Admin: 03/16/21 07:30 Dose: Not Given Documented by: Home Medications Medication Instructions Recorded Confirmed Last Taken Type methadone 10 mg/mL oral 35 mg PO DAILY 03/15/21 03/16/21 03/15/21 09:26 History concentrate (Methadone Intensol) Exam Exam Date and Time: March 16, 2021 1355 Height,Weight and Vital Signs: Height 6 ft Weight 63.503 kg Last Vital Signs Temp 97.0 F 03/16/21 13:09 Pulse 60 03/16/21 13:09 Resp 16 03/16/21 13:09 BP 114/52 L 03/16/21 13:09 Pulse Ox 97 03/16/21 13:09 Oxygen Flow Rate 3 03/15/21 10:09 Pertinent Lab Results Pertinent Lab Results: Laboratory Tests 03/15/21 03/15/21 03/15/21 11:54 11:54 11:54 WBC RBC Hgb Hct MCV MCH MCHC RDW Plt Count MPV Immature Gran % (Auto) Neut % (Auto) Lymph % (Auto) Ward % (Auto) Eos % (Auto) Baso % (Auto) Lymph # (Auto) Ward # (Auto) Eos # (Auto) Baso # (Auto) Abs Immat Gran (auto) Absolute Neuts (auto) Absolute Nucleated RBC Nucleated RBC % (auto) Sodium 144 Potassium 3.8 Chloride 106 Carbon Dioxide 35 H Anion Gap 7 L BUN 25 H D Creatinine 0.67 Estim Creat Clear Calc 94.7 Estimated GFR > 60 Random Glucose 97 Calcium 8.7 Total Bilirubin 1.1 H Direct Bilirubin 0.8 H AST 91 H ALT 50 H Alkaline Phosphatase 75 Troponin I High Sens B-Natriuretic Peptide Total Protein 5.6 L Albumin 2.8 L Lipase 24 Vitamin B12 908 H Folate 8.3 Urine Color Urine Appearance Urine pH Ur Specific [place] Urine Protein Urine Glucose (UA) Urine Ketones Urine Blood Urine Nitrite Ur Leukocyte Esterase Urine RBC Urine WBC Ur Squamous Epith Cells Calcium Oxalate Crystal Urine Bacteria Urine Mucus COVID-19 (TREVOR) Negative COVID-19 Clin Com See Note 03/15/21 03/15/21 03/15/21 13:23 13:23 13:23 WBC 7.0 RBC 3.58 L Hgb 9.6 L D Hct 32.7 L MCV 91.3 MCH 26.8 L MCHC 29.4 L RDW 15.8 Plt Count 118 L MPV 10.4 Immature Gran % (Auto) 0.3 Neut % (Auto) 71.0 Lymph % (Auto) 20.9 Ward % (Auto) 7.6 Eos % (Auto) 0.1 Baso % (Auto) 0.1 Lymph # (Auto) 1.5 Ward # (Auto) 0.5 Eos # (Auto) 0.0 Baso # (Auto) 0.0 Abs Immat Gran (auto) 0.02 Absolute Neuts (auto) 5.0 Absolute Nucleated RBC 0.000 Nucleated RBC % (auto) 0.0 Sodium Potassium Chloride Carbon Dioxide Anion Gap BUN Creatinine Estim Creat Clear Calc Estimated GFR Random Glucose Calcium Total Bilirubin Direct Bilirubin AST ALT Alkaline Phosphatase Troponin I High Sens 4.0 B-Natriuretic Peptide 129 H Total Protein Albumin Lipase Vitamin B12 Folate Urine Color Urine Appearance Urine pH Ur Specific [place] Urine Protein Urine Glucose (UA) Urine Ketones Urine Blood Urine Nitrite Ur Leukocyte Esterase Urine RBC Urine WBC Ur Squamous Epith Cells Calcium Oxalate Crystal Urine Bacteria Urine Mucus COVID-19 (TREVOR) COVID-19 Clin Com 03/15/21 03/16/21 03/16/21 19:25 06:12 06:12 WBC 4.7 L RBC 3.08 L Hgb 8.3 L Hct 28.0 L MCV 90.9 MCH 26.9 L MCHC 29.6 L RDW 15.9 Plt Count 92 L MPV 11.1 Immature Gran % (Auto) Neut % (Auto) Lymph % (Auto) Ward % (Auto) Eos % (Auto) Baso % (Auto) Lymph # (Auto) Ward # (Auto) Eos # (Auto) Baso # (Auto) Abs Immat Gran (auto) Absolute Neuts (auto) Absolute Nucleated RBC 0.000 Nucleated RBC % (auto) 0.0 Sodium 143 Potassium 3.8 Chloride 108 Carbon Dioxide 30 H Anion Gap 9 L BUN 19 H Creatinine 0.63 Estim Creat Clear Calc 100.7 Estimated GFR > 60 Random Glucose 177 H D Calcium 8.4 Total Bilirubin Direct Bilirubin AST ALT Alkaline Phosphatase Troponin I High Sens B-Natriuretic Peptide Total Protein Albumin Lipase Vitamin B12 Folate Urine Color DK YELLOW Urine Appearance HAZY Urine pH 6.0 Ur Specific [place] >= 1.030 H Urine Protein NEG Urine Glucose (UA) NEG Urine Ketones NEG Urine Blood 3+ H Urine Nitrite NEG Ur Leukocyte Esterase NEG Urine RBC 15-29 H Urine WBC 0 Ur Squamous Epith Cells 2+ Calcium Oxalate Crystal 3+ Urine Bacteria TRACE Urine Mucus 2+ COVID-19 (TREVOR) COVID-19 Clin Com Airway Mallampati Class: II (Edentulous) TM Dist: >3cm Loose/Missing/Broken Teeth: Yes, Upper and Lower Heart: RRR Lungs: distant but no wheezing Assessment and Plan Assessment Anesthesia Assessment: Anesthesia Plan Discussed and Chart Reviewed Final Anesthetic Review History of Problems with Anesthesia: No NPO: Yes ASA Class: III Final Preanesthetic Review: Meds/Allgs Chart Reviewed, Consent Obtained/Reviewed and Anes Risks/Benef Reviewed Patient Risk: Intermediate Procedure Risk: Intermediate Anesthetic Plan Anesthetic Plan: MAC: Disposition: Standard PACU
--- NOTE | 2021-03-16 14:23 | MHC.SHP ---
Pre-Procedural Eval Section A Date of Service: 03/16/21 The patient is an INPATIENT: Yes The History & Physical has been completed within 30 days and I have reviewed it.: Yes Section B Chief Complaint: COPD Exacerbation Dyspepsia Allergies: Allergies Allergy/AdvReac Type Severity Reaction Status Date / Time morphine [MORPHINE] Allergy Intermediate RASH Verified 01/03/21 10:09 Penicillins [PCN] Allergy Intermediate HIVES Verified 01/03/21 10:09 penicillin V Allergy Unknown rash Verified 01/03/21 10:09 Plan Diagnosis/Plan: Unchanged I have reviewed the history and physical and performed a pertinent physical examination on my patient. No changes have occurred unless specified.
--- NOTE | 2021-03-16 14:56 | PM.OP ---
Brief Operative Note Date of Service: 03/16/21 Pre-op diagnosis: dysphagia Post-op diagnosis: same Procedure: see op note Surgeon: Itzel Price MD Anesthesia: MAC Was an Clerical Adjuster used for this Procedure?: No Estimated blood loss (mL): 0 Condition: stable Disposition: PACU
--- NOTE | 2021-03-16 14:56 | W.PM.OPN ---
Operative Note Operative Note Date of Service: 03/16/21 Narrative: Procedure Description: EGD FLEXIBLE TRANSORAL UPPER GASTROINTESTINAL ENDOSCOPY UPPER ENDOSCOPY Consent: Indications for the procedure and potential complications of bleeding, perforation, reaction to medications and missed diagnosis were discussed with the patient and informed consent was obtained. Instrument: Olympus GIF H 190 J mid size upper endoscope Monitoring: Vital signs and clinical assessment, continuous EKG monitoring, Pulse oximetry, Carbon Dioxide monitoring and blood pressure monitoring were done throughout the procedure. Procedure: The patient was placed in the left lateral decubitis position and pre-procedure medications were administered and a bite block was placed. The endoscope was inserted into the mouth and advanced under direct vision to the third part of duodenum. A careful inspection was made as the upper endoscope was withdrawn including a retroflexed examination of the proximal stomach; Findings and interventions are described below. Findings: Larynx:normal Esophagus: GE junction at 40 cm, diaphragm hiatus at 40 cm, retained food noted, with 5 cm length of ulcerated friable tissue at the distal esophagus extending into the cardia and LES, bx were taken. There was minimal esophageal peristalsis. solid food material was pushed into the stomach. Stomach: Patchy gastric erythema. Grade 2 flap valve on retroflexed examination of the cardia. 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
--- NOTE | 2021-03-16 16:17 | MHC.CLN ---
NUTRITION ADDED ENSURE CLEAR 240 ML TID (720 KCAL, 24 G PROTEIN). DIET=CLEAR LIQUID. WEIGHT IS 78% OF IBW.
--- NOTE | 2021-03-16 16:39 | PC.NURSE ---
pt reusing bed alarm and camera , pt educated on importance of bed alarm and why protocol implemented pt continues to refuse alarm , pt behavior escalates when alarm was going off .
--- NOTE | 2021-03-16 17:07 | P.PNIM_ITS ---
Subjective Subjective Date of Service: 03/16/21 Interval History: copd excerebation , weight loss/nausea Review of Systems Shortness of breath seems slightly better, of oxygen Dysphagia garcia patient has EGD and found to have gastric mass. Patient denies any chest pain, has nausea No vomiting or diarrhea. Physical Exam Vital Signs: Vital Signs: Last Vital Signs Temp 98.9 F 03/16/21 16:00 Pulse 70 03/16/21 16:00 Resp 19 03/16/21 16:00 BP 112/58 L 03/16/21 16:00 Pulse Ox 94 03/16/21 16:00 Oxygen Flow Rate 3 03/15/21 10:09 Body Mass Index 19.0 Appearance: Alert.? Oriented X3.? not in distress, ch ill appearing male . Eyes: Pupils equal, round and reactive to light.? Sclera nonicteric.? ENT: Pharynx normal.? Moist mucous membranes. cvs: rrr, [id number] , no murmur res: has dimished beath sounds , b/l wheezing abd: no rebound or guarding ,nt, bs present. ext pulses present , no cyanosis ,Gait well balanced well coordinated. neuro: axo3 , nonfocal. Objective Data Active Medications Albuterol/Ipratropium (Albuterol/Iprat 2.5/0.5mg 3 Ml Ampul.Neb) 3 ml INHALE Q6H PRN PRN Reason: sob Albuterol/Ipratropium (Albuterol/Iprat 2.5/0.5mg 3 Ml Ampul.Neb) 3 ml INHALE RQ4H WHILE AWAKE [facility] Last Admin: 03/16/21 15:50 Dose: Not Given Documented by: MARK Non-Admin Reason: Off Unit: Surgery Enoxaparin Sodium (Enoxaparin Sodium 40 Mg/0.4 Ml Syringe) 40 mg SUBCUT Q24H [facility] Last Admin: 03/15/21 22:02 Dose: 40 mg Documented by: WANDA Azithromycin 500 mg/ Sodium (Chloride) 250 mls @ 125 mls/hr IV Q24H [facility] Last Infusion: 03/15/21 20:05 Dose: 0 mls/hr Documented by: WANDA Methadone HCl (Methadone Hcl 20 Mg/2 Ml Oral.Conc) 35 mg PO DAILY [facility] Last Admin: 03/16/21 10:39 Dose: 35 mg Documented by: DARRYL Methylprednisolone Sodium Succinate (Methylprednisolone Sod Succ 40 Mg/Ml Vial) 40 mg IVPUSH Q12H [facility] Last Admin: 03/16/21 09:11 Dose: Not Given Documented by: DARRYL Non-Admin Reason: Patient Refused Ondansetron HCl (Ondansetron Hcl 4 Mg/2 Ml Vial) 4 mg IVPUSH Q8H PRN PRN Reason: Nausea Pantoprazole Sodium (Pantoprazole Sodium 40 Mg/10 Ml Vial) 40 mg IVPUSH DAILY@0630 [facility] Last Admin: 03/16/21 06:06 Dose: 40 mg Documented by: TUMASY Sodium Chloride (0.9 % Sodium Chloride Flush 3 Ml Syringe) 3 ml IVFLUSH QSHIFT [facility] Last Admin: 03/16/21 07:30 Dose: Not Given Documented by: DARRYL Non-Admin Reason: IV Running Labs CBC & Chem 7: 03/16/21 06:12 03/16/21 06:12 Labs: Laboratory Results - last 24 hr 03/15/21 03/15/21 03/16/21 11:54 19:25 06:12 MCV 90.9 MCH 26.9 L MCHC 29.6 L RDW 15.9 Plt Count 92 L MPV 11.1 Absolute Nucleated RBC 0.000 Nucleated RBC % (auto) 0.0 Anion Gap Estim Creat Clear Calc Estimated GFR Random Glucose Calcium Vitamin B12 908 H Folate 8.3 Urine Color DK YELLOW Urine Appearance HAZY Urine pH 6.0 Ur Specific [place] >= 1.030 H Urine Protein NEG Urine Glucose (UA) NEG Urine Ketones NEG Urine Blood 3+ H Urine Nitrite NEG Ur Leukocyte Esterase NEG Urine RBC 15-29 H Urine WBC 0 Ur Squamous Epith Cells 2+ Calcium Oxalate Crystal 3+ Urine Bacteria TRACE Urine Mucus 2+ 03/16/21 06:12 MCV MCH MCHC RDW Plt Count MPV Absolute Nucleated RBC Nucleated RBC % (auto) Anion Gap 9 L Estim Creat Clear Calc 100.7 Estimated GFR > 60 Random Glucose 177 H D Calcium 8.4 Vitamin B12 Folate Urine Color Urine Appearance Urine pH Ur Specific [place] Urine Protein Urine Glucose (UA) Urine Ketones Urine Blood Urine Nitrite Ur Leukocyte Esterase Urine RBC Urine WBC Ur Squamous Epith Cells Calcium Oxalate Crystal Urine Bacteria Urine Mucus Assessment and Plan (1) Weight loss: Status: Acute (2) Anemia: Status: Acute (3) COPD (chronic obstructive pulmonary disease): Status: Acute Assessment and Plan: ?1. COPD exacerbation: Started nebs steroids, azithromycin, off oxygen as needed 2.nausea /? dyspepsia: Gi saw the patient -given history of food stuck requiring EGD, weight loss:? May need EGD: found to have gastric mass added ct abd /chest clear liquids 3. Normocytic anemia: H&H slightly question hemodilution. Denies any bleeding grossly or melena H&H range from 9 to 12 range in 2-3year or so Will check B12 and folate. GI following 4. opoid use hx: added methadone. dvt prophylax mech devices due to thrombocytopenia Above management discussed with the patient in detail length he understand and in agreement with the above plan including code status , time spent 70 minutes and 50% time spent on counseling. patient is full code Quality Stroke Does the patient have a stroke diagnosis?: No VTE Prior VTE?: No VTE Risk Level:: Medical - moderate - high VTE Device Contraindication: N/A - Device Ordered VTE Drug Contraindication: N/A - Med Ordered
--- NOTE | 2021-03-16 17:21 | PC.NURSE ---
1730 PT AGITATED PT STATES WERE NOT DOING ANYTHING FOR HIM HERE AND HE WANTS TO LEAVE , PT REFUSING IV ABX , PT STATES HE CALLING HIS TO LEAVE AMA , PT AGITATED MOST OF DAY REGARDING EGD TIME , PT ARRIVED BACK TO UNIT AT 1630 DEMANDING FOOD , THIS RN REACHED OUT TO PROVIDER , NEW ORDER FOR CLEAR LIQUID DIET AT THAT TIME , PT TOLERATED DIET BUT CONT TO WANT TO LEAVE AMMD Roxana AWARE OF PT WISHES . AWARE OF PT WISHES AND ENCOURAGING HIM TO STAY , PT COOPERATIVE AT TIMES WHEN AT BEDSIDE .
--- NOTE | 2021-03-16 18:10 | PC.NURSE ---
PT AGITATED WANTS TO LEAVE AMA , DR ORDOÑEZ AT BEDSIDE TO DISCUSS PTS DIAGNOSIS OF EGD , PT AWARE AND STILL WANTED TO LEAVE AMA . IV REMOVED . .
--- NOTE | 2021-03-16 18:18 | P.DS_ITS ---
DS: Providers Provider Date of Service: 03/16/21 Date of admission: 03/16/21 10:23 Date of discharge: 03/16/21 Primary care physician: Unknown Physician Consults: 03/15/21 18:25 Consult to Gastroenterology Routine Consulting Provider: Itzel Price Reason for consultation: dyspepsia , anemia , weight loss Has provider been notified: No DS: Diagnosis Discharge Diagnosis (1) Weight loss: Status: Acute (2) Anemia: Status: Acute (3) COPD (chronic obstructive pulmonary disease): Status: Acute DS: Summary Hospital Course Hospital Course: 70-year-old male with history of COPD, smoker-at least 20 pack year history, still smoking 2 cigarettes a day: Patient came to the hospital because shortness of breath, cough and phlegm 2-3 days duration-which was progressively getting worse, so decided to come to the hospital. In addition patient says he has nausea and having difficulty to keep the food down due to that.? He also complains of weight loss but does not know how much she lost.? Appears thin. He said nausea and difficult to give food from last 2-3 weeks.? He had meat stuck in his esophagus 5-6 months ago and that time was removed by egd with GI in [facility] Dr. guy. Patient has sputum production yellow color. Patient came to the hospital because of this dyspepsia, anemia COPD e xacerbation he got admitted: Given nebs steroids and the p.r.n. oxygen seems to be improved-going home with the albuterol and steroid, dyspepsia garcia patient has Egd: Found to have is of ago mass suspicious of probable malignancy: Patient does not want to stay and wants to go to home, is alert oriented risk of leaving against medical advise discussed with him in detail including , he understands and still wants to go. His alert oriented x3. Miss obando nursing staff was present during the conversation. In addition he was told to follow up with GI out patiently he says he goes to [facility] and he will make is on appointment over there. He was also told to come back any time in the emergency room in case his condition worsens. Above management discussed with the patient in detail length he understand and in agreement with the above plan, time spent 50 minutes and 50% time spent on counseling. Significant findings: As above. Procedures performed: None. Treatment and response: As above. Complications: None. Time Spent with Patient Time attestation: Total time spent providing and/or coordinating discharge services: Discharge coordination time: Greater than 30 minutes Quality: Stroke Does the patient have a stroke diagnosis?: No Physical Exam Vital Signs: Vital Signs: Last Vital Signs Temp 98.9 F 03/16/21 16:00 Pulse 70 03/16/21 16:00 Resp 19 03/16/21 16:00 BP 112/58 L 03/16/21 16:00 Pulse Ox 94 03/16/21 16:00 Oxygen Flow Rate 3 03/15/21 10:09 Body Mass Index 19.0 Appearance: Alert.? Oriented X3.? not in distress, ch ill appearing male . Eyes: Pupils equal, round and reactive to light.? Sclera nonicteric.? ENT: Pharynx normal.? Moist mucous membranes. cvs: rrr, [id number] , no murmur res: has dimished beath sounds , b/l wheezing abd: no rebound or guarding ,nt, bs present. ext pulses present , no cyanosis ,Gait well balanced well coordinated. neuro: axo3 , nonfocal. DS: Data Data Completed and Pending Pending studies at discharge: Pending at discharge 03/16/21 14:47 Surgical [PTH] Routine Labs on day of discharge: Laboratory Results - last 24 hr 03/15/21 03/15/21 03/16/21 11:54 19:25 06:12 WBC 4.7 L RBC 3.08 L Hgb 8.3 L Hct 28.0 L MCV 90.9 MCH 26.9 L MCHC 29.6 L RDW 15.9 Plt Count 92 L MPV 11.1 Absolute Nucleated RBC 0.000 Nucleated RBC % (auto) 0.0 Sodium Potassium Chloride Carbon Dioxide Anion Gap BUN Creatinine Estim Creat Clear Calc Estimated GFR Random Glucose Calcium Vitamin B12 908 H Folate 8.3 Urine Color DK YELLOW Urine Appearance HAZY Urine pH 6.0 Ur Specific [place] >= 1.030 H Urine Protein NEG Urine Glucose (UA) NEG Urine Ketones NEG Urine Blood 3+ H Urine Nitrite NEG Ur Leukocyte Esterase NEG Urine RBC 15-29 H Urine WBC 0 Ur Squamous Epith Cells 2+ Calcium Oxalate Crystal 3+ Urine Bacteria TRACE Urine Mucus 2+ 03/16/21 06:12 WBC RBC Hgb Hct MCV MCH MCHC RDW Plt Count MPV Absolute Nucleated RBC Nucleated RBC % (auto) Sodium 143 Potassium 3.8 Chloride 108 Carbon Dioxide 30 H Anion Gap 9 L BUN 19 H Creatinine 0.63 Estim Creat Clear Calc 100.7 Estimated GFR > 60 Random Glucose 177 H D Calcium 8.4 Vitamin B12 Folate Urine Color Urine Appearance Urine pH Ur Specific [place] Urine Protein Urine Glucose (UA) Urine Ketones Urine Blood Urine Nitrite Ur Leukocyte Esterase Urine RBC Urine WBC Ur Squamous Epith Cells Calcium Oxalate Crystal Urine Bacteria Urine Mucus Discharge Plan Discharge Patient Disposition: Left Against Medical Advice Discharge Diagnosis: copd exacerbation, anemia, gastric mass. Referrals: Physician,Unknown [Primary Care Provider] - 1 Week Discharge Medications: New doxycycline hyclate 100 mg capsule 100 mg PO DAILY Qty: 10 RF: 0 prednisone 20 mg tablet 20 mg PO DAILY Qty: 3 RF: 0 omeprazole 20 mg capsule,delayed release(DR/EC) 20 mg PO DAILY Qty: 30 RF: 0 albuterol sulfate 90 mcg/actuation aerosol powdr breath activated 1 inh inhalation Q4-6H PRN (Reason: copd) Qty: 2 RF: 0 Flovent HFA 44 mcg/actuation HFA aerosol inhaler 1 puff inhalation BID Qty: 10.6 RF: 0 Continued methadone [Methadone Intensol] 10 mg/mL Concentrate 35 mg PO DAILY RF: 0 Discharge Orders: Discharge Order (Routine); Ordered 03/16/21 Ordered By: Kendra Charles Diet: advance to usual diet Care Plan Goals: Patient came to the hospital because of this dyspepsia, anemia COPD exacerbation he got admitted: Given nebs steroids and the p.r.n. oxygen seems to be improved-going home with the albuterol and steroid, dyspepsia garcia patient has Egd: Found to have is of ago mass suspicious of probable malignancy: Patient does not want to stay and wants to go to home, is alert oriented risk of leaving against medical advise discussed with him in detail including , he understands and still wants to go. His alert oriented x3. Miss [facility]ando nursing staff was present during the conversation. In addition he was told to follow up with GI out patiently he says he goes to [facility] and he will make is on appointment over there. He was also told to come back any time in the emergency room in case his condition worsens. Health Concerns: as above. Plan of Treatment: As above. Assessment: As above. Discharge Date/Time: 03/16/21 18:18
== END 2021-03-16 18:18 | disposition left against medical advice (07) | DRG 375 ==
LOC: HO.ED 10:27 → HO.EDOVER 15:26 → HO.S3 15:42
PROVIDERS: Internal Medicine Gastroenterology; Admitting Provider Internal Medicine; Emergency Provider Emergency Medicine; Visit Provider Internal Medicine
PROC: 0DJ08ZZ Inspection of Upper Intestinal Tract, Via Natural or Artificial Opening Endoscopic (ICD-10-PCS; CPT 43235; principal; 2021-03-16 14:30)
DX: C16.9 Malignant neoplasm of stomach, unspecified (principal); F11.20 Opioid dependence, uncomplicated; J44.1 Chronic obstructive pulmonary disease with (acute) exacerbation; F17.210 Nicotine dependence, cigarettes, uncomplicated; Z71.6 Tobacco abuse counseling; R13.10 Dysphagia, unspecified; Z20.822 Contact with and (suspected) exposure to COVID-19; Z88.0 Allergy status to penicillin; Z88.5 Allergy status to narcotic agent; Z79.51 Long term (current) use of inhaled steroids; Z79.899 Other long term (current) drug therapy
CPT/HCPCS: 36415; 71045; 80048; 80076; 81001; 82607; 82746; 83690; 83880; 84484; 85025; 85027; 87635; 88305; 88341; 88342; 88360; 93005; 94640; 94644; 99283; J0456; J1650; J2920; J2930; J3475

== ENCOUNTER 2021-04-10 22:30 | Emergency (ER) | payer MEDICARE, MEDICAID, SELFPAY ==
--- NOTE | ~2021-04-10 | CT_ITS ---
EXAMINATION: CT ABDOMEN AND PELVIS WITH CONTRAST CLINICAL INFORMATION: Abdominal pain. History of esophageal cancer hepatic mass. COMPARISON: CT chest dated 08/02/2020 TECHNIQUE: Multidetector volumetric images were obtained from the superior aspect of the liver through the pubic symphysis following administration 85 mL of Omnipaque 350 intravenous contrast. Sagittal and coronal reformatted images were obtained on the technologist's workstation. Oral contrast: No This CT examination was performed using dose optimization techniques as appropriate, variously including the following: *Automated exposure control *Adjustment of mA and/or kV according to patient size (this includes techniques or standardized protocols for targeted exams where dose is matched to indication/reason for exam; i.e. extremities or head) *Use of iterative reconstruction technique DLP: 294 mGy-cm FINDINGS: LUNG BASES: There are scattered tree-in-bud nodular opacities right middle and lower lobe. No pneumomediastinum. LIVER, GALLBLADDER, AND BILIARY TREE: Liver is diminutive. There are couple stable hepatic cysts measuring up to 7 mm within hepatic segment 5. No obvious hepatic mass is seen.. Cholelithiasis. PANCREAS: Unremarkable. SPLEEN: Unremarkable. ADRENAL GLANDS: Unremarkable. KIDNEYS AND URETERS: The kidneys are normal in size, shape, and attenuation. No hydronephrosis, hydroureter, or calculi seen. No perinephric stranding. BLADDER: Unremarkable. GASTROINTESTINAL TRACT: A metallic esophagogastric stent is present, which contacts the greater curvature of the stomach.. No intestinal obstruction. Left colonic diverticulosis without evidence of diverticulitis. Stomach is otherwise unremarkable. PERITONEUM: Small a moderate pneumoperitoneum is present. Moderate volume ascites. ABDOMINAL WALL: No significant hernia is appreciated. LYMPH NODES: Normal. VASCULAR: Aorta is atherosclerotic but normal caliber. Large spontaneous splenorenal shunt is present. Patent venous structures. PELVIC VISCERA: Mild prostatomegaly. OSSEOUS STRUCTURES: No acute or suspicious osseous abnormalities. CT/CT abdomen pelvis w con IMPRESSION: * Small to moderate volume pneumoperitoneum of unclear origin. * Esophagogastric metallic stent in place. * Moderate volume ascites. * Diminutive, possibly cirrhotic liver with portal hypertension evidenced by large splenorenal shunt. * Cholelithiasis. This critical result was discussed with John Ybarra MD at 04/11/2021 1:16 AM and it was ascertained that the content and urgency of the report was understood at the time of direct communication.
--- NOTE | ~2021-04-10 | XR_ITS ---
EXAMINATION: XR CHEST CLINICAL INFORMATION: Preoperative assessment COMPARISON: 03/15/2021 TECHNIQUE: Frontal view of the chest was obtained. FINDINGS: Left basilar subsegmental atelectasis. No discrete consolidation. No pleural effusion or pneumothorax. Normal heart size. Aorta is atherosclerotic. Right chest wall Port-A-Cath terminates in the mid SVC. Metallic stent present within the esophagus. XR/XR chest 1V IMPRESSION: No focal consolidation. Left basilar subsegmental atelectasis. Pneumoperitoneum as seen previously.
--- NOTE | 2021-04-10 22:27 | ED_ITS ---
HPI - Abdominal Pain General Chief Complaint: Abdominal Pain Stated Complaint: Abdominal Pain Time Seen by Provider: 04/10/21 22:51 Source: patient Mode of arrival: EMS Limitations: no limitations History of Present Illness HPI narrative: Patient with history of COPD, hypertension chronic liver disease secondary to fatty infiltration and alcohol use in remission, hepatitis-C with cirrhosis, peptic ulcer disease with GI bleed in 2014, chronic dysphagia and weight loss for last 1 month or so comes here for diffuse abdominal pain for last 4 days, pain started all of a sudden is diffuse, had endoscopy done on 03/16 which showed esophageal mass, pathology report shows undifferentiated carcinoma. Patient complaining of diffuse abdominal pain feels hungry no abdominal distension no blood in the stool no diarrhea no vomiting patient stated that he can eat and drink. Patient is on methadone for history of opiate dependence Related Data Home Medications Medication Instructions Recorded Confirmed methadone 10 mg/mL oral 35 mg PO DAILY 03/15/21 03/16/21 concentrate (Methadone Intensol) Previous Rx's Medication Instructions Recorded albuterol sulfate 90 mcg/actuation 1 inh INHALATION Q4-6H PRN #2 ea 03/16/21 breath activated powder inhaler doxycycline hyclate 100 mg capsule 100 mg PO DAILY #10 cap 03/16/21 fluticasone propionate 44 1 puff INHALATION BID #10.6 g 03/16/21 mcg/actuation HFA aerosol inhaler (Flovent HFA) quetiapine 25 mg tablet (Seroquel) 25 mg PO BID 30 Days #60 tab 03/24/21 omeprazole 20 mg capsule,delayed 20 mg PO BID 30 Days #60 cap 04/04/21 release Allergies Allergy/AdvReac Type Severity Reaction Status Date / Time morphine [MORPHINE] Allergy Intermediate RASH Verified 04/05/21 16:55 Penicillins [PCN] Allergy Intermediate HIVES Verified 04/05/21 16:55 penicillin V Allergy Unknown rash Verified 04/05/21 16:55 Review of Systems Review of Systems Constitutional : ++Weight loss, No Fever, No Chills ENT/Mouth : No sore throat, No Rhinorrhea Eyes: No Eye Pain, No Swelling Cardiovascular : No Chest Pain, no palpitations Respiratory : No Cough, No Sputum, no shortness of breath Gastrointestinal : ++ Nausea, No Vomiting, No Diarrhea, +_+ abdominal Pain, no black stools Genitourinary : No Dysuria, No Urinary Frequency Musculoskeletal : No joint pain, No Myalgias, No Joint Swelling Skin : No Skin Lesions, No rash Neuro : No Weakness, No Numbness, No Dizziness, No Headache Psych : No Anxiety/Panic, No Depression Heme/Lymph: No Bruising, No Lymphadenopathy Endocrine : No Polyuria, No Polydipsia All other systems reviewed and are negative Physical Exam Vital Signs: Vital Signs: Last Vital Signs Temp 97.4 F 04/11/21 02:14 Pulse 101 H 04/11/21 02:14 Resp 17 04/11/21 02:14 BP 113/72 04/11/21 02:14 Pulse Ox 94 04/11/21 02:14 Body Mass Index 16.5 Appearance: Alert. Oriented X3. Emaciated sick-looking patient Eyes: No pallor or icterus ENT: Pharynx normal. Oral Mucosa moist Neck: Normal inspection. Neck supple. CVS: Normal heart rate and rhythm. Pulses normal. Respiratory: No respiratory distress. Equal air entry bilateral, no wheezing/rales/rhonchi Abdomen: Soft diffuse tenderness especially right upper quadrant and epigastric area, guarding and rebound tenderness++, Bowel sounds are present, no mass palpable, no CVA tenderness Skin: Skin warm and dry. Normal skin color. Normal skin turgor. Extremities: 3+ lower extremity edema. No calf tenderness Neuro: Oriented X 3. No motor deficit. Course Reevaluation(s) Reevaluation #1: Patient's CT scan showed free air in the abdomen source not very clear case discussed Dr. Garibay surgeon advised to send the patient to tertiary center [facility] where he had the esophageal stent placed on 03/31 which is likely the source of free air Time: 01:45 Reevaluation #2: Case discussed Dr. Gracia thoracic surgeon at [facility] accepted the patient for transfer Time: 02:04 MDM - Abdominal Pain MDM Narrative Medical decision making narrative: Patient medical record from [facility] reviewed patient's very poor historian patient had endoscopy esophageal stent placement and food bolus removal on 03/[address] Baron at [facility]. Transfer Line [facility] contacted for possible transfer to [facility] for further treatment Lab Data Attestation: I reviewed the patient's lab results. Result diagrams: 04/10/21 23:12 04/10/21 23:37 Labs: Lab Results 10/04/10/21 04/10/21 Range/Units 23:12 23:12 23:37 WBC 6.8 (4.8-10.8) X10*3/uL RBC 3.46 L (4.60-5.80) X10*6/uL Hgb 9.8 L (14.0-18.0) g/dl Hct 31.6 L (42-52) % MCV 91.3 (80-98) fL MCH 28.3 (27.0-33.0) pg MCHC 31.0 (31.0-36.0) g/dl RDW 20.7 H (11.0-16.0) % Plt Count 172 D (160-400) X10*3/uL MPV 10.4 (9.4-12.4) fL Immature Gran % (Auto) 0.3 (0.0-0.4) % Neut % (Auto) 90.9 H (45-73) % Lymph % (Auto) 5.3 L (20-40) % [place] % (Auto) 3.4 (2-11) % Eos % (Auto) 0.0 (0-4) % Baso % (Auto) 0.1 (0-2) % Lymph # (Auto) 0.4 L (1.2-4.9) X10*3/uL [place] # (Auto) 0.2 (0.1-1.2) X10*3/uL Eos # (Auto) 0.0 (0.0-0.4) X10*3/uL Baso # (Auto) 0.0 (0.0-0.2) X10*3/uL Abs Immat Gran (auto) 0.02 (0.00-0.03) X10*3/uL Absolute Neuts (auto) 6.1 (2.0-8.3) X10*3/uL Absolute Nucleated RBC 0.000 (0.0-0.012) X10*3/uL Nucleated RBC % (auto) 0.0 (0.0-0.2) /100WBC Smear Tech's Comments VERIFIED PT 16.7 H (9.9-13.0) SEC INR 1.5 H (0.9-1.1) Sodium (135-145) mmol/L Potassium (3.3-5.1) mmol/L Chloride (96-108) mmol/L Carbon Dioxide (22-29) mmol/L Anion Gap (12-20) BUN (9-16) mg/dL Creatinine (0.5-1.4) mg/dL Estim Creat Clear Calc Estimated GFR Random Glucose (60-115) mg/dL Lactic Acid (0.5-2.0) mmol/L Calcium (8.4-10.2) mg/dL Magnesium (1.6-2.6) mg/dL Total Bilirubin (0.0-1.0) mg/dL AST (5-37) U/L ALT (0-40) U/L Alkaline Phosphatase (39-117) U/L Total Protein (6.5-8.0) g/dL Albumin (3.5-5.0) g/dL Lipase (8-78) U/L COVID-19 (TREVOR) Negative (Negative) COVID-19 Clin Com See Note 04/10/21 04/11/21 Range/Units 23:37 01:35 WBC (4.8-10.8) X10*3/uL RBC (4.60-5.80) X10*6/uL Hgb (14.0-18.0) g/dl Hct (42-52) % MCV (80-98) fL MCH (27.0-33.0) pg MCHC (31.0-36.0) g/dl RDW (11.0-16.0) % Plt Count (160-400) X10*3/uL MPV (9.4-12.4) fL Immature Gran % (Auto) (0.0-0.4) % Neut % (Auto) (45-73) % Lymph % (Auto) (20-40) % [place] % (Auto) (2-11) % Eos % (Auto) (0-4) % Baso % (Auto) (0-2) % Lymph # (Auto) (1.2-4.9) X10*3/uL [place] # (Auto) (0.1-1.2) X10*3/uL Eos # (Auto) (0.0-0.4) X10*3/uL Baso # (Auto) (0.0-0.2) X10*3/uL Abs Immat Gran (auto) (0.00-0.03) X10*3/uL Absolute Neuts (auto) (2.0-8.3) X10*3/uL Absolute Nucleated RBC (0.0-0.012) X10*3/uL Nucleated RBC % (auto) (0.0-0.2) /100WBC Smear Tech's Comments PT (9.9-13.0) SEC INR (0.9-1.1) Sodium 140 (135-145) mmol/L Potassium 4.2 (3.3-5.1) mmol/L Chloride 105 (96-108) mmol/L Carbon Dioxide 29 (22-29) mmol/L Anion Gap 10 L (12-20) BUN 21 H (9-16) mg/dL Creatinine 0.64 (0.5-1.4) mg/dL Estim Creat Clear Calc 84.2 Estimated GFR > 60 Random Glucose 105 D (60-115) mg/dL Lactic Acid 3.5 H* (0.5-2.0) mmol/L Calcium 7.9 L (8.4-10.2) mg/dL Magnesium 1.8 (1.6-2.6) mg/dL Total Bilirubin 2.0 H (0.0-1.0) mg/dL AST 32 D (5-37) U/L ALT 29 (0-40) U/L Alkaline Phosphatase 79 (39-117) U/L Total Protein 4.9 L (6.5-8.0) g/dL Albumin 2.3 L (3.5-5.0) g/dL Lipase 4 L (8-78) U/L COVID-19 (TREVOR) (Negative) COVID-19 Clin Com Imaging Data CT scan - abdomen: Attestation: I personally reviewed and interpreted this imaging study as follows: Radiologist's impression: Patient: Carlos Coto MR#: [id number] : 1950 Acct:[id number] Age/Sex: 70 / M ADM Date: 04/10/21 Loc: HO.ED Attending Dr: Ordering Physician: John Vigil MD Date of Service: 04/10/21 Procedure(s): CT abdomen pelvis w con Accession Number(s): [id number] cc: John Vigil MD~ EXAMINATION: CT ABDOMEN AND PELVIS WITH CONTRAST? CLINICAL INFORMATION: Abdominal pain. History of esophageal cancer hepatic mass.? COMPARISON: CT chest dated 08/02/2020? TECHNIQUE: Multidetector volumetric images were obtained from the superior aspect of the liver through the pubic symphysis following administration 85 mL of Omnipaque 350 intravenous contrast. Sagittal and coronal reformatted images were obtained on the technologist's workstation.? Oral contrast: No This CT examination was performed using dose optimization techniques as appropriate, variously including the following: *Automated exposure control *Adjustment of mA and/or kV according to patient size (this includes techniques or standardized protocols for targeted exams where dose is matched to indication/reason for exam; i.e. extremities or head) *Use of iterative reconstruction technique DLP: 294 mGy-cm FINDINGS: LUNG BASES: There are scattered tree-in-bud nodular opacities right middle and lower lobe. No pneumomediastinum. LIVER, GALLBLADDER, AND BILIARY TREE: Liver is diminutive. There are couple stable hepatic cysts measuring up to 7 mm within hepatic segment 5. No obvious hepatic mass is seen.. Cholelithiasis.? PANCREAS: Unremarkable.? SPLEEN: Unremarkable.? ADRENAL GLANDS: Unremarkable.? KIDNEYS AND URETERS: The kidneys are normal in size, shape, and attenuation. No hydronephrosis, hydroureter, or calculi seen. No perinephric stranding. ? BLADDER: Unremarkable.? GASTROINTESTINAL TRACT: A metallic esophagogastric stent is present, which contacts the greater curvature of the stomach.. No intestinal obstruction. Left colonic diverticulosis without evidence of diverticulitis. Stomach is otherwise unremarkable. PERITONEUM: Small a moderate pneumoperitoneum is present. Moderate volume ascites. ABDOMINAL WALL: No significant hernia is appreciated.? LYMPH NODES: Normal. VASCULAR: Aorta is atherosclerotic but normal caliber. Large spontaneous splenorenal shunt is present. Patent venous structures. PELVIC VISCERA: Mild prostatomegaly.? OSSEOUS STRUCTURES: No acute or suspicious osseous abnormalities.? CT/CT abdomen pelvis w con IMPRESSION: *? Small to moderate volume pneumoperitoneum of unclear origin. *? Esophagogastric metallic stent in place. *? Moderate volume ascites. *? Diminutive, possibly cirrhotic liver with portal hypertension evidenced by large splenorenal shunt. *? Cholelithiasis. ? This critical result was discussed with John Ybarra MD at 04/11/2021 1:16 AM and it was ascertained that the content and urgency of the report was understood at the time of direct communication. Dictated By: ZINA RINCON MD Signed By: <Electronically signed by ZINA RINCON MD in OV> 04/11/21 0121 ECG Data Attestation: I personally reviewed and interpreted this ECG as follows: Interpretation: sinus tachycardia with heart rate 103 beats per minute Q-wave in inferior lead no acute ischemic changes Discharge Plan Discharge Clinical Impression: Bowel perforation Patient Disposition: Xfer Other Transfer Details: To [facility] ED/ Dr. Gracia Prescriptions: No Action methadone [Methadone Intensol] 10 mg/mL Concentrate 35 mg PO DAILY RF: 0 doxycycline hyclate 100 mg capsule 100 mg PO DAILY Qty: 10 RF: 0 albuterol sulfate 90 mcg/actuation aerosol powdr breath activated 1 inh inhalation Q4-6H PRN (Reason: copd) Qty: 2 RF: 0 Flovent HFA 44 mcg/actuation HFA aerosol inhaler 1 puff inhalation BID Qty: 10.6 RF: 0 omeprazole 20 mg capsule,delayed release(DR/EC) 20 mg PO BID 30 Days Qty: 60 RF: 2 quetiapine [Seroquel] 25 mg tablet 25 mg PO BID 30 Days Qty: 60 RF: 1 PMFSH Past Medical History Medical History Anemia COPD (chronic obstructive pulmonary disease) Hypertension Liver disease No known health problems Smoking Surgical History History of arthroscopic knee surgery History of biopsy History of liver biopsy Family History Family History Father Unknown family medical history Mother Breast cancer Brother No problems noted. Brother No problems noted. Brother No problems noted. Sister No problems noted. Sister No problems noted. Sister No problems noted. Sister Cancer Son No problems noted. Son No problems noted. Son No problems noted. Daughter No problems noted. Social History Social History Housing: House Alcohol intake: never Patient Tobacco Use Status: Current everyday Tobacco user Tobacco use type: Cigarette Cigarettes Per Day: 3 Years Smoked: 30 Second Hand Smoke Exposure: No Advance Directives: No Advance Directives Information Provided: No service: No Current occupational status: retired
[2021-04-10 22:46] VITALS: BP 130/67; PULSE 107; RESP 16; TEMP 36.7; O2SAT 93; BMI 16.5
[2021-04-10] MEDS: 0.9 % Sodium Chloride 1,000 ML 999 ML IVCONT (23:19)
[2021-04-10 23:20] LABS: Basophils Percent Auto 0.1 % (0-2); Hematocrit 31.6 % (42-52); Hemoglobin 9.8 g/dl (14.0-18.0); Imm Gran Abs Auto 0.02 X10*3/uL (0.00-0.03); Imm Gran Pct Auto 0.3 % (0.0-0.4); Lymphocytes Absolute Auto 0.4 X10*3/uL (1.2-4.9); Lymphocytes Percent Auto 5.3 % (20-40); MANUAL DIFF FLAG SCAN; Mean Corpuscular Hemoglobin 28.3 pg (27.0-33.0); Mean Corpuscular Volume 91.3 fL (80-98); Mean Platelet Volume 10.4 fL (9.4-12.4); Monocytes Absolute Auto 0.2 X10*3/uL (0.1-1.2); Monocytes Percent Auto 3.4 % (2-11); Neutrophils Absolute Auto 6.1 X10*3/uL (2.0-8.3); Neutrophils Percent Auto 90.9 % (45-73); Platelet Count 172 X10*3/uL (160-400); Red Blood Count 3.46 X10*6/uL (4.60-5.80); Red Cell Distribution Width 20.7 % (11.0-16.0); SCAN SMEAR FLAG 1; White Blood Count 6.8 X10*3/uL (4.8-10.8)
[2021-04-10 23:33] LABS: COVID-19 Test Negative (Negative)
[2021-04-10 23:37] LABS: SLIDE REVIEW VERIFIED
[2021-04-10] MEDS: ondansetron HCL 4 MG/2 ML VIAL IVPUSH (23:54)
[2021-04-10 23:56] VITALS: RESP 14
[2021-04-10 23:56] LABS: INTERNATIONAL NORM RATIO 1.5 (0.9-1.1); Prothrombin Time 16.7 SEC (9.9-13.0)
[2021-04-10] MEDS: HYDROmorphone HCl 1 MG/ML SYRINGE IVPUSH (23:56)
[2021-04-11 00:03] LABS: Alanine Aminotransferase 29 U/L (0-40); Albumin Level 2.3 g/dL (3.5-5.0); Alkaline Phosphatase 79 U/L (39-117); Anion Gap 10 (12-20); Aspartate Amino Transferase 32 U/L (5-37); Blood Urea Nitrogen 21 mg/dL (9-16); Calcium 7.9 mg/dL (8.4-10.2); Carbon Dioxide 29 mmol/L (22-29); Chloride 105 mmol/L (96-108); Creatinine Clr Calc Pharmacy 84.2; Estimated Glomerular Filt Rate > 60; Glucose Random 105 mg/dL (60-115); Lipase 4 U/L (8-78); Magnesium 1.8 mg/dL (1.6-2.6); Potassium 4.2 mmol/L (3.3-5.1); Sodium 140 mmol/L (135-145); Total Protein 4.9 g/dL (6.5-8.0)
[2021-04-11] MEDS: iohexoL 350 MG/ML 100 ML INFUS..BTL 85 ML IV (00:51)
--- NOTE | 2021-04-11 01:28 | ECG_ITS ---
Test Reason : ABD PAIN Blood Pressure : / mmHG Vent. Rate : 103 BPM Atrial Rate : 103 BPM P-R Int : 198 ms QRS Dur : 086 ms QT Int : 312 ms P-R-T Axes : 063 027 084 degrees QTc Int : 408 ms Poor data quality Sinus tachycardia Low voltage QRS Nonspecific ST abnormality Abnormal ECG No significant changes seen Referred By: John Vigil Electronically Signed By:RAJIV LIZAMA MD
[2021-04-11 01:37] VITALS: RESP 18
[2021-04-11] MEDS: cefTRIAXone sodium 2 GM in 0.9 % Sodium Chloride 50 ML IV (01:37)
[2021-04-11] MEDS: 0.9 % Sodium Chloride 1,000 ML 999 ML IVCONT (01:40)
[2021-04-11] MEDS: metroNIDAZOLE/NS 500 MG/100 ML PIGGYBACK 100 MG IV (01:48)
--- NOTE | 2021-04-11 01:48 | PC.NURSE ---
@ [phone] DR DIOR REQUESTS CALL OUT TO [facility] PT TTX LINE [phone] MICHELLE ANSWERS AND ASKS TO SPEAK WITH DR OVI DIOR TAKES OVER CALL RIGHT AWAY
--- NOTE | 2021-04-11 01:58 | PC.NURSE ---
@ 0287 RETURN CALL FROM [facility] PT TX LINE FITZ ASKING TO SPEAK WITH DR OVI DIOR TAKES OVER CALL RIGHT AWAY
[2021-04-11 02:03] LABS: Lactic Acid 3.5 mmol/L (0.5-2.0)
--- NOTE | 2021-04-11 02:12 | PC.NURSE ---
@ 0210 JOSUE FROM [facility] PT TX LINE CONFIRMS ER TO ER TRANSFER FOR THIS PT AND GIVES A RN TO CIARA HUBER [phone]
[2021-04-11 02:14] VITALS: BP 113/72; PULSE 101; RESP 17; TEMP 36.3; O2SAT 94
--- NOTE | 2021-04-11 03:25 | PC.NURSE ---
nurse to nurse report given to Ko RN at [facility] ED
[2021-04-11 03:38] LABS: Reflex Lactate? Lactic Acid Added
== END 2021-04-11 03:25 | disposition short-term general hospital (02) ==
PROVIDERS: Emergency Provider Internal Medicine
DX: K63.1 Perforation of intestine (nontraumatic) (principal); I10 Essential (primary) hypertension; J44.9 Chronic obstructive pulmonary disease, unspecified; F11.20 Opioid dependence, uncomplicated; Z87.11 Personal history of peptic ulcer disease; Z20.822 Contact with and (suspected) exposure to COVID-19
CPT/HCPCS: 36415; 71045; 74177; 80053; 83605; 83690; 83735; 85025; 85610; 87040; 87635; 93005; 96361; 96365; 96375; 99285; J0696; J1170; J2405; Q9967